=== PATIENT | male | born 1965 | race Two or more races ===

== ENCOUNTER 2023-11-10 02:54 | Observation (INO) ==
[2023-11-10 04:17] LABS: Basophils # (auto) 0.05 K/uL (0.00-0.20); Basophils % (auto) 0.8 %; Eosinophils # (auto) 0.24 K/uL (0.00-0.50); Hematocrit (blood only) 42.7 % (42.0-52.0); Hemoglobin 14.6 g/dl (14.0-18.0); Immature Granulocytes # (auto) 0.01 K/uL (0.01-0.20); Immature Granulocytes % (auto) 0.2 %; Lymphocytes # (auto) 1.47 K/uL (1.20-3.40); Lymphocytes % (auto) 24.6 %; Mean Corpuscular Hemoglobin 29.7 pg (25.0-34.0); Mean Corpuscular Hgb Conc 34.2 g/dL (32.0-36.0); Mean Platelet Volume 12.6 fL (9.4-12.4); Monocytes # (auto) 0.52 K/uL (0.11-0.59); Monocytes % (auto) 8.7 %; Neutrophils # (auto) 3.68 K/uL (1.40-6.50); Neutrophils % (auto) 61.7 %; Platelet Count 136 K/uL (130-400); RDW Coefficient of Variation 12.8 % (11.5-14.5); RDW Standard Deviation 40.3 fL (36.4-46.3); Red Blood Count 4.91 M/uL (4.70-6.10); White Blood Count 5.97 K/ul (4.8-10.8)
[2023-11-10 04:23] LABS: Albumin Globulin Ratio 1.5 (0.9-2); Albumin Level 4.1 gm/dl (3.4-5.0); BUN Creatinine Ratio 18.3 (10-20); Bilirubin,Total 0.7 mg/dl (0.2-1.0); Calcium 9.1 mg/dl (8.6-10.3); Est GFR (African American) 87.5 ml/min; Est GFR (Non-African American) 75.5 ml/min; Globulin 2.8 gm/dl (2.5-4.0); Potassium 3.7 mmol/L (3.5-5.1); Total Protein 6.9 gm/dl (6.0-8.3)
[2023-11-10 04:29] LABS: Troponin I High Sensitivity 10.6 pg/ml (0-20)
[2023-11-10 04:39] LABS: Thyroid Stimulating Hormone 2.826 uIu/ml (0.300-4.500)
--- NOTE | 2023-11-10 04:47 | Emergency Department Note ---
Impression & Plan Syncope Admit to the [facility] ED Provider Note NAME: SUREKHA MIRELES AGE: 57 SEX: Male INFORMANT: [Patient] ED PROVIDER(S): Jessica Stauffer DO CHIEF COMPLAINT: Syncope/near syncope PLAN: Disposition: Admit to the [facility] MEDICAL DECISION MAKING: This is a 57-year-old male patient with a minimal past medical history who presents to the emergency department with sudden onset syncope. The patient was walking from his bedroom to his daughter's bedroom when he became lightheaded, stumbled and passed out. His son saw him stumbling and was able to grab him and lowered him to the ground. Following this event, he was profoundly weak and fatigued. He was slow to answer questions and seemed to have a bit of an altered mental status. After some time, this cleared up and the patient stated that he felt back to normal. When he presented to the ER, the patient was pale in color and slightly diaphoretic. Laboratory studies drawn here in the ER revealed no leukocytosis with a normal H&H. Urinalysis was unremarkable. Glucose was slightly elevated at 148. TSH was normal. Renal function was normal. Electrolytes were normal. Troponin fell in the normal range at 10.6. Patient has CT scan of the brain which was unremarkable. I had a lengthy discussion with the patient and his sons about his presentation and voiced concern over the possibility of TIA versus seizure. I recommended admission to the hospital for further neurological workup. Care/management discussed with: Patient, his sons, chronic disease manager, and [facility] Triage Nursing notes: [reviewed and agree with them]. Vital Signs: reviewed and unremarkable Additional History obtained from: Patient's sons were at the bedside Differential Diagnosis: Vasovagal syncope, CVA, TIA, seizure, Diagnostics, independently interpreted by me: ECG: Normal sinus rhythm at a rate of [address] segment elevation or signs of ischemia. There is no ectopy. Cardiac Monitoring: Normal sinus rhythm at 67 Imaging studies: Portable chest x-ray as per my independent interpretation-no significant cardiomegaly or pulmonary pathology CT scan of the brain: As per stat rad. HPI: 57 year old Male arrives for evaluation of syncopal episode. Patient was walking from his bedroom to his daughter's bedroom when he became lightheaded and passed out to the ground. Following the event he was profoundly weak and fatigued. He has never had an episode like this in the past. 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 Pupils are equal, round, and reactive to light. Extraocular eye muscles are intact and sclera are anicteric. Nose - moist nasal mucosa without discharge. Mouth - moist buccal mucosa. Oropharynx is nonerythematous and there is no tonsillar exudate or edema noted. No trauma noted to the tongue Neck: Supple; no cervical lymphadenopathy Heart: Regular rate and rhythm. There is a normal S1 and S2 with no murmurs, clicks, or gallops appreciated. Lungs: Clear to auscultation bilaterally with no wheezes, rales, or rhonchi. Abdomen: Soft, completely nontender, nondistended, with good bowel sounds. There are no palpable pulsatile masses or hepatosplenomegaly. There is no guarding, rigidity, or rebound noted. Extremities: No evidence of cyanosis, clubbing, or edema. There are easily palpable peripheral pulses. Neuro:The patient is awake and alert, oriented to day, time, and place. Muscle strength is 5/5 in all 4 extremities. The patient has equal driver trainee strength and equal pedal push and pull. There are no cerebellar signs. Emergency Department course: The patient was evaluated in room C-5. A complete history and physical was performed. Blood sugar was obtained and was 138. An order was placed for continuous cardiac monitoring. The patient was in a normal sinus rhythm at a rate of 67. A twelve-lead EKG was obtained as described above. Patient went for CT scan of the brain. Patient seems somewhat slow to answer questions initially on my evaluation. This passed and his mental status returned to baseline. I kept the patient and his sons abreast of the situation. I discussed the case with the [facility] and they will evaluate for further inpatient care. Past Med/Surg History Social History Smoking Status: Never smoker Preferred Language: Romanian Feels Safe at Home: Yes Allergies Allergies Allergy/AdvReac Type Severity Reaction Status Date / Time [id number] Allergy Unknown Uncoded 10/23/05 21:14 Results & Data (ED) Vital Signs Vital Signs - 24 hr 11/10/23 03:13 11/10/23 03:19 11/10/23 04:02 Temperature 37 C Temperature Source Oral Pulse Rate - Lying Pulse Rate - Sitting Pulse Rate - Standing Pulse Rate 71 76 Pulse Rate from SpO2 Sensor Respiratory Rate 16 Blood Pressure - Lying Blood Pressure - Sitting Blood Pressure- Standing Blood Pressure 140/84 Blood Pressure Mean 102 Pulse Oximetry 98 97 Oxygen Delivery Method Room Air Room Air Sepsis Recent Fever Within 48 Hours No Sepsis New/Unexplained Change in Mental Status No Sepsis Action Taken by Nursing No Action Required 11/10/23 04:02 11/10/23 04:30 11/10/23 04:48 Temperature Temperature Source Pulse Rate - Lying 69 Pulse Rate - Sitting 76 Pulse Rate - Standing 74 Pulse Rate 69 67 Pulse Rate from SpO2 Sensor 68 66 Respiratory Rate 16 14 Blood Pressure - Lying 141/90 H Blood Pressure - Sitting 139/91 Blood Pressure- Standing 142/92 H Blood Pressure 132/83 Blood Pressure Mean 99 Pulse Oximetry 96 96 Oxygen Delivery Method Room Air Room Air Sepsis Recent Fever Within 48 Hours Sepsis New/Unexplained Change in Mental Status Sepsis Action Taken by Nursing 11/10/23 05:00 Temperature Temperature Source Pulse Rate - Lying Pulse Rate - Sitting Pulse Rate - Standing Pulse Rate 67 Pulse Rate from SpO2 Sensor Respiratory Rate 17 Blood Pressure - Lying Blood Pressure - Sitting Blood Pressure- Standing Blood Pressure 139/96 Blood Pressure Mean 110 Pulse Oximetry Oxygen Delivery Method Sepsis Recent Fever Within 48 Hours Sepsis New/Unexplained Change in Mental Status Sepsis Action Taken by Nursing Laboratory Data 11/10/23 03:15 11/10/23 03:15 Lab Results 11/10/23 11/10/23 11/10/23 Range/Units 03:15 03:19 04:45 WBC 5.97 (4.8-10.8) K/ul RBC 4.91 (4.70-6.10) M/uL Hgb 14.6 (14.0-18.0) g/dl Hct 42.7 (42.0-52.0) % MCV 87.0 (80.0-100.0) fL MCH 29.7 (25.0-34.0) pg MCHC 34.2 (32.0-36.0) g/dL RDW Std Deviation 40.3 (36.4-46.3) fL RDW Coeff of Cruz 12.8 (11.5-14.5) % Plt Count 136 (130-400) K/uL MPV 12.6 H (9.4-12.4) fL Immature Gran % (Auto) 0.2 % Neut % (Auto) 61.7 % Lymph % (Auto) 24.6 % [place] % (Auto) 8.7 % Eos % (Auto) 4.0 % Baso % (Auto) 0.8 % Neut # (Auto) 3.68 (1.40-6.50) K/uL Lymph # (Auto) 1.47 (1.20-3.40) K/uL [place] # (Auto) 0.52 (0.11-0.59) K/uL Eos # (Auto) 0.24 (0.00-0.50) K/uL Baso # (Auto) 0.05 (0.00-0.20) K/uL Immature Gran # (Auto) 0.01 (0.01-0.20) K/uL Sodium 137 (136-145) mmol/L Potassium 3.7 (3.5-5.1) mmol/L Chloride 107 (98-107) mmol/L Carbon Dioxide 22 (21-32) mmol/L Anion Gap 8 (3-11) BUN 20 (6-23) mg/dl Creatinine 1.09 (0.6-1.4) mg/dl Est Cr Clr Drug Dosing 85.0 ml/min Est GFR ( Amer) 87.5 ml/min Est GFR (Non-Af Amer) 75.5 ml/min BUN/Creatinine Ratio 18.3 (10-20) Glucose 148 H (70-99(Fasting)) mg/dl POC Glucose 138 H (70-99) mg/dl Calcium 9.1 (8.6-10.3) mg/dl Magnesium 2.0 (1.7-2.4) mg/dl Total Bilirubin 0.7 (0.2-1.0) mg/dl AST 24 (13-39) U/L ALT 30 (7-52) U/L Alkaline Phosphatase 93 (34-104) U/L Troponin I High Sens 10.6 (0-20) pg/ml Total Protein 6.9 (6.0-8.3) gm/dl Albumin 4.1 (3.4-5.0) gm/dl Globulin 2.8 (2.5-4.0) gm/dl Albumin/Globulin Ratio 1.5 (0.9-2) TSH 2.826 (0.300-4.500) uIu/ml Urine Color Yellow Urine Appearance Clear (Clear) Urine pH 6.0 (4.5-7.5) Ur Specific [place] 1.016 (1.000-1.030) Urine Protein Negative (Negative) Urine Glucose (UA) Negative (Negative) Urine Ketones Negative (Negative) Urine Blood Negative (Negative) Urine Nitrite Negative (Negative) Urine Bilirubin Negative (Negative) Urine Urobilinogen Negative (Negative) Ur Leukocyte Esterase Negative (Negative) Imaging Data Radiologist's Impression: Head CT 11/10/23 03:47 Exam(s): CT HEAD Without Contrast EXAM: CT Head Without Intravenous Contrast CLINICAL HISTORY: Reason for exam: syncope; weakness. TECHNIQUE: Axial computed tomography images of the head/brain without intravenous contrast. Automated exposure control was utilized for the study. A dose lowering technique was utilized adhering to the principles of ALARA. COMPARISON: No relevant prior studies available. FINDINGS: Brain: No acute stroke. No hemorrhage. No abnormal extra-axial fluid collection. No significant white matter disease. Ventricles: No hydrocephalus. No midline shift. Bones/joints: Unremarkable. No acute fracture. Soft tissues: Unremarkable. Sinuses: Mucosal thickening bilateral ethmoid air cells and sphenoid sinus. No acute sinusitis. IMPRESSION: No acute abnormality. Paranasal sinus disease. Electronically signed by: Dragan Larios M.D. 11/10/23 04:57 AM Discharge Plan Visit Data Chief Complaint: Confusion Stated Complaint: syncope ED Provider: Jessica Stauffer Discharge Problem: Syncope Forms Stand Alone Forms: [facility] Referrals Referrals: PCP,NO [Physician] - Discharge Problem: Syncope Qualifiers: Syncope type: unspecified Qualified Code(s): R55 - Syncope and collapse
--- NOTE | 2023-11-10 04:58 | CT Scan Report ---
Exam(s): CT HEAD Without Contrast EXAM: CT Head Without Intravenous Contrast CLINICAL HISTORY: Reason for exam: syncope; weakness. TECHNIQUE: Axial computed tomography images of the head/brain without intravenous contrast. Automated exposure control was utilized for the study. A dose lowering technique was utilized adhering to the principles of ALARA. COMPARISON: No relevant prior studies available. FINDINGS: Brain: No acute stroke. No hemorrhage. No abnormal extra-axial fluid collection. No significant white matter disease. Ventricles: No hydrocephalus. No midline shift. Bones/joints: Unremarkable. No acute fracture. Soft tissues: Unremarkable. Sinuses: Mucosal thickening bilateral ethmoid air cells and sphenoid sinus. No acute sinusitis. IMPRESSION: No acute abnormality. Paranasal sinus disease. Electronically signed by: Dragan Larios M.D. 11/10/23 04:57 AM
[2023-11-10 05:03] LABS: Appearance Urine Clear (Clear); Bilirubin Urine Negative (Negative); Blood Urine Negative (Negative); Color Urine Yellow; Glucose Urine UA Negative (Negative); Ketones Urine Negative (Negative); Leukocyte Esterase Urine Negative (Negative); Nitrite Urine Negative (Negative); Protein Urine Negative (Negative); Specific Gravity Urine 1.016 (1.000-1.030); Urobilinogen Urine Negative (Negative)
--- NOTE | 2023-11-10 06:56 | XRay Report ---
XR chest 1V portable CLINICAL HISTORY: weakness COMPARISON STUDY: No previous studies for comparison. FINDINGS: Lung volumes are normal. Lungs are clear. There is no pneumothorax or pleural effusion. Car diac size is normal. Mediastinal contours are normal. There is no evidence for pulmonary edema. IMPRESSION: No acute cardiopulmonary findings. ACT 112: Negative or not required by law. Electronically signed by: Kana Shirley M.D. 11/10/2023 6:55 AM
--- NOTE | 2023-11-10 08:28 | History & Physical Report ---
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 Patient was sleeping and his daughter came home he tried to get up when he suddenly felt like passing out. He thinks he might have passed out for a fraction of second and his son was there who who held him and the patient did not fall. As per the ER initially for 15 to 20 minutes patient was confused and slow to answer and after that came back to usual self. But patient did not think he was confused. Says he was extremely weak and did not want to get up. Denies any chest pain or shortness of breath. No palpitations. No headache. Vision is okay. 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 Patient was sleeping and his daughter came home he tried to get up when he suddenly felt like passing out. He thinks he might have passed out for a fraction of second and his son was there who who held him and the patient did not fall. As per the ER initially for 15 to 20 minutes patient was confused and slow to answer and after that came back to usual self. But patient did not think he was confused. Says he was extremely weak and did not want to get up. Denies any chest pain or shortness of breath. No palpitations. No headache. Vision is okay. No earache or runny nose. No sore throat. No cough. No nausea or abdominal pain. Normal bowel and bladder movements. Current resting comfortably and hemodynamically stable. Past medical history. As mentioned above Past surgical history. Colonoscopy. Cystoscopy. IR biopsy. Social history. . No smoking. No alcohol. No drug use. Family history. Mother has asthma. Diabetes. Father had glaucoma. Maternal grandfather had diabetes. Paternal grandfather had diabetes. Allergies Allergy/AdvReac Type Severity Reaction Status Date / Time [id number] Allergy Unknown Uncoded 10/23/05 21:14 Home Medications Medication Instructions Recorded Confirmed Type atorvastatin 10 mg tablet 10 mg PO DAILY 11/10/23 11/10/23 History cholecalciferol (vitamin D3) 50 50 mcg PO DAILY 11/10/23 11/10/23 History mcg (2,000 unit) capsule (Vitamin D3) Past Med/Surg History Social History Smoking Status: Never smoker Preferred Language: Vincentian Feels Safe at Home: Yes Review of Systems Review of Systems: All systems reviewed & are unremarkable except as noted in HPI & below Physical Exam Physical Exam: General- Not in distress Head- atraumatic Eyes- PERRL. ENT- oropharynx clear Neck- supple, no JVD. Lungs- clear to auscultation no wheezing or crackles. Heart- regular rhythm; no murmur, no gallop. Abdomen- normal bowel sounds, soft, nontender, no distension. Extremities- no pretibial edema, no erythema seen. Neuro- alert, oriented x 3; PERRL, EOMI; no facial palsy; no dysarthria; motor 5/5 bilaterally; coordination of movements normal. No pronator drift. sensations intact Skin- warm & dry Results & Data Results & Data Vital Signs (Past 12 Hours) Vital Signs Temp Pulse Resp BP Pulse Ox O2 Del Method 11/10/23 08:07 62 11/10/23 05:00 67 17 139/96 11/10/23 04:30 67 14 96 Room Air 11/10/23 04:02 69 16 132/83 96 Room Air 11/10/23 04:02 97 Room Air 11/10/23 03:19 76 11/10/23 03:13 37 C 71 16 140/84 98 Room Air Diagnostic Findings Laboratory Results WBC 5.97 K/ul (4.8-10.8) 11/10/23 03:15 RBC 4.91 M/uL (4.70-6.10) 11/10/23 03:15 Hgb 14.6 g/dl (14.0-18.0) 11/10/23 03:15 Hct 42.7 % (42.0-52.0) 11/10/23 03:15 MCV 87.0 fL (80.0-100.0) 11/10/23 03:15 MCH 29.7 pg (25.0-34.0) 11/10/23 03:15 MCHC 34.2 g/dL (32.0-36.0) 11/10/23 03:15 RDW Std Deviation 40.3 fL (36.4-46.3) 11/10/23 03:15 RDW Coeff of Cruz 12.8 % (11.5-14.5) 11/10/23 03:15 Plt Count 136 K/uL (130-400) 11/10/23 03:15 MPV 12.6 fL (9.4-12.4) H 11/10/23 03:15 Immature Gran % (Auto) 0.2 % 11/10/23 03:15 Neut % (Auto) 61.7 % 11/10/23 03:15 Lymph % (Auto) 24.6 % 11/10/23 03:15 [place] % (Auto) 8.7 % 11/10/23 03:15 Eos % (Auto) 4.0 % 11/10/23 03:15 Baso % (Auto) 0.8 % 11/10/23 03:15 Neut # (Auto) 3.68 K/uL (1.40-6.50) 11/10/23 03:15 Lymph # (Auto) 1.47 K/uL (1.20-3.40) 11/10/23 03:15 [place] # (Auto) 0.52 K/uL (0.11-0.59) 11/10/23 03:15 Eos # (Auto) 0.24 K/uL (0.00-0.50) 11/10/23 03:15 Baso # (Auto) 0.05 K/uL (0.00-0.20) 11/10/23 03:15 Immature Gran # (Auto) 0.01 K/uL (0.01-0.20) 11/10/23 03:15 Sodium 137 mmol/L (136-145) 11/10/23 03:15 Potassium 3.7 mmol/L (3.5-5.1) 11/10/23 03:15 Chloride 107 mmol/L (98-107) 11/10/23 03:15 Carbon Dioxide 22 mmol/L (21-32) 11/10/23 03:15 Anion Gap 8 (3-11) 11/10/23 03:15 BUN 20 mg/dl (6-23) 11/10/23 03:15 Creatinine 1.09 mg/dl (0.6-1.4) 11/10/23 03:15 Est Cr Clr Drug Dosing 85.0 ml/min 11/10/23 03:15 Est GFR ( Amer) 87.5 ml/min 11/10/23 03:15 Est GFR (Non-Af Amer) 75.5 ml/min 11/10/23 03:15 BUN/Creatinine Ratio 18.3 (10-20) 11/10/23 03:15 Glucose 148 mg/dl (70-99(Fasting)) H 11/10/23 03:15 POC Glucose 138 mg/dl (70-99) H 11/10/23 03:19 Calcium 9.1 mg/dl (8.6-10.3) 11/10/23 03:15 Magnesium 2.0 mg/dl (1.7-2.4) 11/10/23 03:15 Total Bilirubin 0.7 mg/dl (0.2-1.0) 11/10/23 03:15 AST 24 U/L (13-39) 11/10/23 03:15 ALT 30 U/L (7-52) 11/10/23 03:15 Alkaline Phosphatase 93 U/L (34-104) 11/10/23 03:15 Troponin I High Sens 10.6 pg/ml (0-20) 11/10/23 03:15 Total Protein 6.9 gm/dl (6.0-8.3) 11/10/23 03:15 Albumin 4.1 gm/dl (3.4-5.0) 11/10/23 03:15 Globulin 2.8 gm/dl (2.5-4.0) 11/10/23 03:15 Albumin/Globulin Ratio 1.5 (0.9-2) 11/10/23 03:15 TSH 2.826 uIu/ml (0.300-4.500) 11/10/23 03:15 Urine Color Yellow 11/10/23 04:45 Urine Appearance Clear (Clear) 11/10/23 04:45 Urine pH 6.0 (4.5-7.5) 11/10/23 04:45 Ur Specific [place] 1.016 (1.000-1.030) 11/10/23 04:45 Urine Protein Negative (Negative) 11/10/23 04:45 Urine Glucose (UA) Negative (Negative) 11/10/23 04:45 Urine Ketones Negative (Negative) 11/10/23 04:45 Urine Blood Negative (Negative) 11/10/23 04:45 Urine Nitrite Negative (Negative) 11/10/23 04:45 Urine Bilirubin Negative (Negative) 11/10/23 04:45 Urine Urobilinogen Negative (Negative) 11/10/23 04:45 Ur Leukocyte Esterase Negative (Negative) 11/10/23 04:45 Impressions Chest X-Ray 11/10/23 03:46 XR chest 1V portable CLINICAL HISTORY: weakness COMPARISON STUDY: No previous studies for comparison. FINDINGS: Lung volumes are normal. Lungs are clear. There is no pneumothorax or pleural effusion. Cardiac size is normal. Mediastinal contours are normal. There is no evidence for pulmonary edema. IMPRESSION: No acute cardiopulmonary findings. ACT 112: Negative or not required by law. Electronically signed by: Kana Shirley M.D. 11/10/2023 6:[address] 11/10/23 03:47 Exam(s): CT HEAD Without Contrast EXAM: CT Head Without Intravenous Contrast CLINICAL HISTORY: Reason for exam: syncope; weakness. TECHNIQUE: Axial computed tomography images of the head/brain without intravenous contrast. Automated exposure control was utilized for the study. A dose lowering technique was utilized adhering to the principles of ALARA. COMPARISON: No relevant prior studies available. FINDINGS: Brain: No acute stroke. No hemorrhage. No abnormal extra-axial fluid collection. No significant white matter disease. Ventricles: No hydrocephalus. No midline shift. Bones/joints: Unremarkable. No acute fracture. Soft tissues: Unremarkable. Sinuses: Mucosal thickening bilateral ethmoid air cells and sphenoid sinus. No acute sinusitis. IMPRESSION: No acute abnormality. Paranasal sinus disease. Electronically signed by: Dragan Larios M.D. 11/10/23 04:57 AM ECG Additional Comments: ECG. Normal sinus rhythm rate of 74. Nonspecific T abnormalities. Code Status & VTE Plan VTE Prophylaxis Plan VTE Prophylaxis will be ordered: Yes (1) Syncope Syncope type: unspecified Qualified Code(s): R55 - Syncope and collapse
[2023-11-10] MEDS ORDERED: PHARMACIST DISCHARGE MED REC CONSULT PRN (09:09)
[2023-11-10] MEDS ORDERED: NITROGLYCERIN SL 0.4 MG/TAB TAB SL PRN (09:09)
[2023-11-10] MEDS ORDERED: SODIUM CHLORIDE 0.9% 1,000 ML IV SCH (09:09)
[2023-11-10] MEDS ORDERED: ACETAMINOPHEN 325 MG TAB PO PRN (09:09)
--- NOTE | 2023-11-10 09:46 | Cardiology Progress Note ---
Date of Service November 10, 2023 Assessment & Plan Admission and Anticipated Discharge Date Admission Date: November 10, 2023 Supervising Physician Co-Signing Physician Notes 57 yo man presenting with syncope * EKG - sinus - normal intervals. No active ischemic changes noted; does not appear C/W HCM * Head CT - negative for CVA or mass * ECHOcardiogram - completed - results pending * Troponin 10, repeat Troponin * Check Lipids * No known Carotid Disease * Check TSH * Continue on telemetry * KDUR 40 meq po x 1 * K+ goal 4.5-5 * Mag goal >2 * Check Orthostatics - may be negative as patient has been fluid resuscitated. 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 * Late night * Gets up to greet daughter * Walking from bedroom to cuevas * Lightheaded * No vertigo * No palpitations * No chest pain/pressure * Fell to ground * Caught by son * No trauma reported * No seizure activity * No incontinence * Day preceding - normal * Normal fluid and food intake day of/prior to presentation * EKG - normal intervals; no ischemic changes * Head CT - no mass, bleeding or evidence of CVA * No DM - FSG at scene unclear Events overnight: * No arrhythmias detected Subjective: * Patient back to baseline Review of Systems 2 Review of Systems: All systems reviewed & are unremarkable except as noted in HPI & below Physical Exam Physical Exam: No elevation in JVP No carotid bruits No subclavian bruits CTA B S1S2 No , No outflow murmur No c/c/e Warm and perfusing Motor - intact Sensation - grossly intact No facial droop Results & Data Vital Signs (Past 12 Hours) Vital Signs Temp Pulse Resp BP Pulse Ox Pulse Ox O2 Del Method 11/10/23 09:27 98 11/10/23 08:30 61 14 97 Room Air 11/10/23 08:07 62 11/10/23 06:00 62 12 116/73 98 Room Air 11/10/23 05:00 67 17 139/96 11/10/23 04:30 67 14 96 Room Air 11/10/23 04:02 69 16 132/83 96 Room Air 11/10/23 04:02 97 Room Air 11/10/23 03:19 76 11/10/23 03:13 37 C 71 16 140/84 98 Room Air O2 Del Method 11/10/23 09:27 Room Air 11/10/23 08:30 11/10/23 08:07 11/10/23 06:00 11/10/23 05:00 11/10/23 04:30 11/10/23 04:02 11/10/23 04:02 11/10/23 03:19 11/10/23 03:13 Laboratory Results Cardiac Enzymes 11/10/23 Range/Units 03:15 AST 24 (13-39) U/L Troponin I High Sens 10.6 (0-20) pg/ml CBC 11/10/23 Range/Units 03:15 WBC 5.97 (4.8-10.8) K/ul RBC 4.91 (4.70-6.10) M/uL Hgb 14.6 (14.0-18.0) g/dl Hct 42.7 (42.0-52.0) % Plt Count 136 (130-400) K/uL Neut # (Auto) 3.68 (1.40-6.50) K/uL Lymph # (Auto) 1.47 (1.20-3.40) K/uL [place] # (Auto) 0.52 (0.11-0.59) K/uL Eos # (Auto) 0.24 (0.00-0.50) K/uL Baso # (Auto) 0.05 (0.00-0.20) K/uL Comprehensive Metabolic Panel 11/10/23 Range/Units 03:15 Sodium 137 (136-145) mmol/L Potassium 3.7 (3.5-5.1) mmol/L Chloride 107 (98-107) mmol/L Carbon Dioxide 22 (21-32) mmol/L BUN 20 (6-23) mg/dl Creatinine 1.09 (0.6-1.4) mg/dl Glucose 148 H (70-99(Fasting)) mg/dl Calcium 9.1 (8.6-10.3) mg/dl AST 24 (13-39) U/L ALT 30 (7-52) U/L Alkaline Phosphatase 93 (34-104) U/L Total Protein 6.9 (6.0-8.3) gm/dl Albumin 4.1 (3.4-5.0) gm/dl Intake and Output 11/09/23 11/10/23 11/10/23 22:59 06:59 14:59 Other: Weight 89 kg Weight Measurement Method Built in Bedscale Medications Administered Current Inpatient Medications Acetaminophen (Acetaminophen 325 Mg Tab) 650 mg PO Q4H PRN PRN Reason: Pain or Fever Stop: 12/10/23 09:08 Sodium Chloride (Nss) 1,000 mls @ 100 mls/hr IV .Q10H SRIKANTH Stop: 11/11/23 05:08 Miscellaneous Information (Pharmacist Discharge Med Rec Consult) 1 each N/A UD PRN PRN Reason: Consult Stop: 12/10/23 09:08 Nitroglycerin (Nitroglycerin Sl 0.4 Mg/Tab Tab) 0.4 mg SL Q5M PRN PRN Reason: Chest Pain Stop: 12/10/23 09:08
--- OUTSIDE RECORDS SUMMARY | 2023-11-10 11:02 | External Medical Summary | Summary of Care ---
Author Name Unknown Organization [facility] Address [address] [place] [facility] [place] [place] [address] Phone [phone] Care Team Providers Care Notch Machine Operator Name Role Phone Ford Marsh MD Primary Care Provider + Reason for Visit * Reason Comments Medication Refill Encounter Details Date Type Department Care Team (Late st Contact Info) Description 09/25/2023 Refill General Internal Medicine [facility] [address] [facility] [place] [address] Ford Marsh MD [address] [place] [address] Dyslipidemia, goal LDL below 160 Allergies No known active allergiesdocumented as of this encounter (statuses as of 09/25/2023) Medications Medication Sig Dispensed Refills Start Date End Date Status Cholecalciferol (VITAMIN D3) 2000 units Capsule Take 1 Capsule by mouth in the morning. 30 Cap 5 09/20/2019 Active Vitamin E 100 UNIT Oral Tablet Take 4 Tablets by mouth in the morning. 0 Active Atorvastatin Calcium 10 MG Oral Tablet (Lipitor)Indicati ons:Dyslipidemia, goal LDL below 160 TAKE ONE TABLET BY MOUTH EVERY DAY 90 Tablet 1 09/25/2023 09/24/2024 Active Atorvastatin Calcium 10 MG Oral Tablet (Lipitor)Indicati ons:Dyslipidemia, goal LDL below 160 TAKE ONE TABLET BY MOUTH EVERY DAY 90 Tablet 1 02/14/2023 09/25/2023 Discontinued (Refill) documented as of this encounter (statuses as of 09/25/2023) Active Problems Problem Noted Date Diagnosed Date Mixed hyperlipidemia 04/15/2022 Fatty liver 04/15/2022 Erectile dysfunction 07/10/2021 Dysmetabolic syndrome X 07/10/2021 Prediabetes 01/13/2018 Overview: Per Prediabetes protocol #1 Vitamin D deficiency 05/15/2017 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 Calculus of ureter 06/18/2005 Other acne 06/18/2005 documented as of this encounter (statuses as of 09/25/2023) Resolved Problems Problem Noted Date Diagnosed Date Resolved Date Dyslipidemia, goal LDL below 160 2008 04/15/2022 Malaise and fatigue 10/14/2008 03/10/20 13 Disease of pituitary gland 10/14/2008 0 03/10/2013 documented as of this encounter (statuses as of 09/25/2023) Immunizations Name Administration Dates Next Due COVID-19 mRNA, LNP-s, No Pre serve, 2-Dose Series ([employer]) 11/16/2021,12/21/2020,11/30/2020 Covid-19, Mrna, Lnp-s, Pf, B ivalent, 30 Mcg, IM, 12 yrs and above (Pfizer) 10/10/2022 HEP A - Hepatitis A (Adult > 18 yrs) 04/04/2009 Meningococcal Conjugate Vacc ine (Menactra/Menveo) 04/04/2009 SEASONAL INFLUENZA, PF, 6 M & Above, IM , (FLULAVAL or FLUZONE) 09/24/2023,09/10/2022 Seasonal Influenza, Quadriva lent, No Preserve, IM 08/29/2021,09/06/2020,09/20/2019,10/08 Seasonal Influenza, Split, I IV3, With Preserve, Inj 09/03/2017,08/29/2016,09/19/2015 TD, Preservative Free 04/20/2021 TDAP (age 11 and older)(Adacel) 04/04/2009 Zoster Vaccine Recombinant (Shingrix) 04/20/2021 documented as of this encounter Social History Tobacco Use Types Packs/Day Years Used Date Smoking Tobacco: Never Smokeless Tobacco: Never Alcohol Use Standard Drinks/Week Comments No 0 (1 standard drink = 0.6 oz pur e alcohol) PHQ-2 Answer Date Recorded PHQ Adult Total Score 0 11/12/2022 Hunger Vital Sign Answer Date Recorded Within the past 12 months, y ou worried that your food would run out before you got the money to buy more. Never true 11/12/20 22 Within the past 12 months, t he food you bought just didn't last and you didn't have money to get more. Never true 11/12/2022 Sex and Gender Information Value Date Recorded Sex Assigned at Male 05/28/2019 11:47 AM EDT Gender Identity Male 05/28/2019 11:47 AM EDT Sexual Orientation Straight 05/28/2019 11 :47 AM EDT Job Start Date Occupation Industry Not on file Not on file Not on file documented as of this encounter Miscellaneous Notes * Telephone Encounter - Lolly Hunter RPh - 09/25/2023 10:21 AM EDTSigned Prescriptions: Disp Refills Atorvastatin Calcium 10 MG Oral Tablet (Li*90 Tab*1 Sig: TAKE ONE TABLET BY MOUTH EVERY DAYAuthorizing Provider: FORD MARSH User: LOLLY ESPINAL V-- * Telephone Encounter - Lolly Hunter RPh - 09/25/2023 10:18 AM EDT Did you pend patient's preferred pharmacy and medication before forwarding?no Pharmacy: [facility] Pending Prescriptions: Disp Refills Atorvastatin Calcium 10 MG Oral Tablet (L*90 Tab*1 Sig: TAKE ONE TABLET BY MOUTH EVERY DAY Last Visit: 07/28/2023 (in office), 04/15/2022 (telemedicine) Next Visit: 03/29/2024 If no future appointments scheduled, and last appointment is greater than a year ago, please schedule patient for a follow-up appointment Last date the medication was ordered: 02/14/23 ALT slightly elevated 08/16/23. Repeat lab ordered. Is this request for a controlled substance?No Urine Drug Screen:No results found for this or any previous visit. Patient Phone Numbers Labs: Lab Results Component Value Date/Time CREAT 0.9 08/16/2023 11:17 AM CREAT 1.1 06/01/2020 09:25 AM POTASSIUM 4.2 08/16/2023 11:17 AM POTASSIUM 4.7 06/01/2020 09:25 AM TSH 2.38 11/12/2022 09:22 AM TSH 1.36 12/09/2017 04:24 PM LDLCALC 90 08/16/2023 11:17 AM LDLCALC 89 06/01/2020 09:25 AM LDLDIRECT NOT APPLICABLE 06/01/2020 09:25 AM LDLDIRECT 125 06/11/2005 09:05 AM ALT 79 (H) 08/16/2023 11:17 AM ALT 31 06/01/2020 09:25 AM HGBA1C 6.1 (H) 08/16/2023 11:17 AM HGBA1C 5.8 (H) 06/01/2020 09:25 AM Lolly Espinal RPh, CACP, CDE Clinical Pharmacist [facility] 09/25/2023, 10:18 AM documented in this encounter Plan of Treatment Upcoming Encounters Date Type Department Care Team (Late st Contact Info) Description 10/14/2023 4:15 PM EST Office Visit Urology, [facility] [address] [facility] [place] [address] Eduardo Geiger MD [address] [facility] [address] [place] [address] 02/16/2024 2:30 PM EDT Office Visit Otolaryngology [facility] [address] [place] [address] Grant Beasley DO [address] [place] [address] 03/29/2024 12:40 PM EDT Office Visit General Internal Medicine [facility] [address] [facility] [place] [address] Ford Marsh MD [address] [facility] [place] [address] Scheduled Procedures Name Priority Associated Diagnoses Date/Ti me COLONOSCOPY FLEXIBLE PROXIMA L DIAGNOSTIC Recall History of colonic polyps Health Maintenance Due Date Last Done Comments Hepatitis B (1 of 3 - 3-dose series) 1965 Zoster Vaccines (2 of 2) 06/15/2021 04/20/2021 COVID-19 Vaccine (2022- season) 2023 10/10/2022, 11/16/2021, 12/21/2020, Additional history exists Depression Screening 11/12/2023 11/12/2022 COLONOSCOPY-ANNUAL AGES 18-100 05/21/2024 05/21/2023, 05/21/2023, 01/23/2018, Additional history exists HbA1c 08/16/2024 08/16/2023, 03/31, 07/27/2021, Additional history exists Lipid Panel 08/16/2028 08/16/2023, 03/31, 04/21/2021, Additional history exists DTaP,Tdap,and Td Vaccines (4 - Td or Tdap) 04/20/2031 04/20/2021, 03/20/2011, 04/04/2009 MENINGOCOCCAL (MENACTRA/MENVEO) Aged Out 04/04/2009 No longer eligible based on patient's age to complete this topic COLONOSCOPY-EVERY 5 YRS AGES 18-100 Discontinued 05/21/2023, 05/21/2023, 01/23/2018, Additional history exists Influenza Vaccine (FLU shot) Completed 09/24/2023, 09/10/2022, 08/29/2021, Additional history exists GARDASIL-HPV IMMUNIZATION SERIES Aged Out No longer eligible based on patient's age to complete this topic Pneumococcal Vaccine: Pediatrics (0 to 5 Years) and At-Risk Patients (6 to 64 Years) Aged Out No longer eligible based on patient's age to complete this topic documented as of this encounter Medical Devices Not on filedocumented as of this encounter Visit Diagnoses Diagnosis Dyslipidemia, goal LDL below 160 Other and unspecified hyperlipidemia documented in this encounter Care Teams Notch Machine Operator Relationship Specialty Start Date End Date Ford Marsh MD [address] [facility] [place] [address] PCP - General Internal Medicine 04/19/22 documented as of this encounter
--- OUTSIDE RECORDS SUMMARY | 2023-11-10 11:02 | External Medical Summary | Summary of Care ---
Author Name Unknown Organization [facility] Address [address] [place] [address] Phone [phone] Care Team Providers Care Line Producer Name Role Phone Ford Wise MD Primary Care Provider + Reason for Visit * Reason Onset Date Comments Waiter/Waitress Cafeteria Documentation 09/04/2023 20 23 Healthy Activity Advance Directive Encounter Details Date Type Department Care Team Description 09/04/2023 Telephone Care Management, [place] [address] [place], [place] [id number] Taylor Ta, [facility] Waiter/Waitress Cafeteria Documentation (2022 Health... Allergies No known active allergiesdocumented as of this encounter (statuses as of 09/04/2023) Medications Medication Sig Dispensed Refills Start Date End Date Status Cholecalciferol (VITAMIN D3) 2000 units Capsule Take 1 Capsule by mouth in the morning. 30 Cap 5 09/20/2019 Active Vitamin E 100 UNIT Oral Tablet Take 4 Tablets by mouth in the morning. 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 Calculus of ureter 06/18/2005 Other acne 06/18/2005 documented as of this encounter (statuses as of 09/04/2023) Resolved Problems Problem Noted Date Resolved Date Dyslipidemia, goal LDL below 160 2008 04/15/2022 Malaise and fatigue 10/14/2008 03/10/2013 Disease of pituitary gland 10/14/200803/10 documented as of this encounter (statuses as of 09/04/2023) Immunizations Name Administration Dates Next Due COVID-19 mRNA, LNP-s, No Pre serve, 2-Dose Series ([employer]) 11/16/2021,12/21/2020,11/30/2020 Covid-19, Mrna, Lnp-s, Pf, B ivalent, 30 Mcg, IM, 12 yrs and above ([employer]) 10/10/2022 HEP A - Hepatitis A (Adult > 18 yrs) 04/04/2009 Meningococcal Conjugate Vacc ine (Menactra/Menveo) 04/04/2009 SEASONAL INFLUENZA, PF, 6 M & Above, IM , (FLULAVAL or FLUZONE) 09/10/2022 Seasonal Influenza, Quadriva lent, No Preserve, IM [...] drink = 0.6 oz pur e alcohol) Food Insecurity Answer Date Recorded Within the past 12 months, y ou worried that your food would run out before you got money to buy more. Never true 11/12/2022 Within the past 12 months, t he food you bought just didn't last and you didn't have money to get more. Never true 11/12/2022 Sex Assigned at Date Recorded Male 05/28/2019 11:47 AM EDT Job Start Date Occupation Industry Not on file Not on file Not on file documented as of this encounter Miscellaneous Notes * ACP (Advance Care Planning) - Taylor Ta LCSW - 09/04/2023 3:46 PM EDT Images from the original note were not included. Advance Care Planning MyCare[employer]ices Team received request from patient via e-mail. Advanced Directive Healthy Activity Request Form was completed by patient. Patients answers to ACP questionnaires have been placed medical record in ACP activity. Patient preferred method of contacted selected contact method: no contact, will attend a group presentation on Advanced Care Planning. Patient-centered Communication 09/04/2023 Decisions Additional Comments Discerning What Matters Most to the Patient: Synopsis SmartLink Most Recent Value Past ~10 years 09/04/2023 15:47 Discerning What Matters Most to the Patient The patient's HOPES are: Other (define below) 09/04/2023 Other (define below) Other, patient defines as: "talking with family" 09/04/2023 "talking with family" The patient defines LIVING WELL as: "A living will will ensure me to get the care I want." 09/04/2023 "A living will will ensure me to get the care I want." The patient's PRIOR EXPERIENCES: "Focus on health as much as possible." 09/04/2023 "Focus on health as much as possible." The patient's cultural or spiritual BELIEFS that may affect health care decisions: "Remembrance of creator brings comfort." 09/04/2023 "Remembrance of creator brings comfort." Source: Content from Respecting Choices Program Aligning Care With What Matters Most: No data to display Rationale for Decisions Source: Content from Respecting Choices Program Taylor Ta LCSW documented in this encounter Plan of Treatment Upcoming Encounters Date Type Specialty Care Team Description 10/14/2023 Office Visit Urology Eduardo Geiger MD [address] [place] [address] [place] [address] 02/16/2024 Office Visit Otolaryngology Grant eBasley DO [address] [place] [address] 03/29/2024 Office Visit Internal Medicine Ford Wise MD [address] [facility], [place] [phone] Scheduled Procedures Name Priority Associated Diagnoses Date/Ti me COLONOSCOPY FLEXIBLE PROXIMA L DIAGNOSTIC Recall History of colonic polyps Health Maintenance Due Date Last Done Comments Hepatitis B (1 of 3 - 3-dose series) 1965 Zoster Vaccines (2 of 2) 06/15/2021 04/20/2021 COVID-19 Vaccine (2022- season) 2023 10/10/2022, 11/16/2021, 12/21/2020, Additional history exists Influenza Vaccine (FLU shot) (#1) 2023 09/10/2022, 08/29/2021, 09/06/2020, Additional history exists Depression Screening 11/12/2023 11/12/2022 [...] Discontinued 05/21/2023, 05/21/2023, 01/23/2018, Additional history exists GARDASIL-HPV IMMUNIZATION SERIES Aged Out No longer eligible based on patient's age to complete this topic Pneumococcal Vaccine: Pediatrics (0 to 5 Years) and At-Risk Patients (6 to 64 Years) Aged Out No longer eligible based on patient's age to complete this topic documented as of this encounter Medical Devices Not on filedocumented as of this encounter Care Teams Line Producer Relationship Specialty Start Date End Date Ford Wise MD [address] [place] [id number] PCP - General Internal Medicine 04/19/22 documented as of this encounter
--- OUTSIDE RECORDS SUMMARY | 2023-11-10 11:02 | External Medical Summary | Summary of Care ---
Author Name Unknown Organization [facility] Address [address] [place] [address] Phone [phone] Care Team Providers Care Geophysical Data Technician Name Role Phone Ford Wise MD Primary Care Provider + Reason for Visit * Reason Onset Date Comments Films 08/29/2023 Encounter Details Date Type Department Care Team Description 08/29/2023 Telephone Radiology Film [facility] [address] [place] [address] Tod Bates PA-C [address] [place] [address] Films Allergies No known active allergiesdocumented as of this encounter (statuses as of 08/29/2023) Medications Medication Sig Dispensed Refills Start Date [...] as of this encounter (statuses as of 08/29/2023) Active Problems Problem Noted Date Mixed hyperlipidemia 04/15/2022 Fatty liver 04/15/2022 Erectile dysfunction 07/10/2021 Dysmetabolic syndrome X 07/10/2021 Prediabetes 01/13/2018 Overview: Per Prediabetes protocol #1 Vitamin D deficiency 05/15/2017 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 Calculus of ureter 06/18/2005 Other acne 06/18/2005 documented as of this encounter (statuses as of 08/29/2023) Resolved Problems Problem Noted Date Resolved Date Dyslipidemia, goal LDL below 160 2008 04/15/2022 Malaise and fatigue 10/14/2008 03/10/2013 Disease of pituitary gland 10/14/200803/10 documented as of this encounter (statuses as of 08/29/2023) Immunizations Name Administration Dates Next Due COVID-19 mRNA, LNP-s, No Pre serve, 2-Dose Series (Pfizer) 11/16/2021,12/21/2020,11/30/2020 Covid-19, Mrna, Lnp-s, Pf, B ivalent, 30 Mcg, IM, 12 yrs and above (Pfizer) 10/10/2022 HEP A - Hepatitis A (Adult > 18 yrs) 04/04/2009 Meningococcal Conjugate Vacc ine (Menactra/Menveo) 04/04/2009 Seasonal Influenza, PF, 6 mo ns & Above, IM , (Flulaval) 09/10/2022 Seasonal Influenza, Quadriva lent, No Preserve, [...] encounter Miscellaneous Notes * Telephone Encounter - ANUJ Alfaro - 08/29/2023 8:32 AM EDT Patient requested for recent 07-24-23 to present head/neck imaging to be sent to [facility] ENT -Dr Kingsley Patterson. Wright Authorization to Release on file. Images pushed to [facility] Life Image account, Job ID: [id number] Report(s) faxed to [phone]. Successful fax confirmation received. documented in this encounter Plan of Treatment Upcoming Encounters Date Type Specialty Care Team Description 10/14/2023 Office Visit Urology Eduardo Geiger MD [address] [place] [address] [place] [address] 02/16/2024 Office Visit Otolaryngology Grant Beasley DO [address] [place] [address] 03/29/2024 Office Visit Internal Medicine Ford Wise MD [address] [place] [address] Scheduled Procedures Name Priority Associated Diagnoses Date/Ti me COLONOSCOPY FLEXIBLE PROXIMA L DIAGNOSTIC Recall History of colonic polyps Health Maintenance Due Date Last Done Comments Hepatitis B (1 of 3 - 3-dose series) 1965 Zoster Vaccines (2 of 2) 06/15/2021 04/20/2021 Influenza Vaccine (FLU shot) (#1) 2023 09/10/2022, [...] on patient's age to complete this topic COVID-19 Vaccine Completed 10/10/2022, , 12/21/2020, Additional history exists COLONOSCOPY-EVERY 5 YRS AGES 18-100 Discontinued 05/21/2023, [...] filedocumented as of this encounter Care Teams Geophysical Data Technician Relationship Specialty Start Date End Date Ford Wise MD [address] [place] [id number] PCP - General Internal Medicine 04/19/22 documented as of this encounter
--- OUTSIDE RECORDS SUMMARY | 2023-11-10 11:02 | External Medical Summary | Summary of Care ---
Author Name Unknown Organization [facility] Address [address] [place] [address] Phone [phone] Care Team Providers Care Heat Transfer Technician Name Role Phone Ford Marsh MD Primary Care Provider + Reason for Visit * Reason Comments Follow Up Encounter Details Date Type Department Care Team (Late st Contact Info) Description 10/14/2023 4:15 PM EST Office Visit Urology, [facility] [address] [place] [address] Eduardo Geiger MD [address] [facility] [address] [place] [address] Erectile dysfunction due to diseases classified elsewhere*; BPH without obstruction/lower urinary tract symptoms Allergies No known active allergiesdocumented as of this encounter (statuses as of 10/14/2023) Medications Medication Sig Dispensed Refills Start Date [...] DAY 90 Tablet 1 09/25/2023 09/24/2024 Active documented as of this encounter (statuses as of 10/14/2023) Active Problems Problem Noted Date Diagnosed Date Mixed hyperlipidemia 04/15/2022 Fatty liver 04/15/2022 Erectile dysfunction 07/10/2021 Dysmetabolic syndrome X 07/10/2021 Prediabetes 01/13/2018 Overview: Per Prediabetes protocol #1 Vitamin D deficiency 05/15/2017 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 Calculus of ureter 06/18/2005 Other acne 06/18/2005 documented as of this encounter (statuses as of 10/14/2023) Resolved Problems Problem Noted Date Diagnosed Date Resolved Date Dyslipidemia, goal LDL below 160 2008 04/15/2022 Malaise and fatigue 10/14/2008 03/10/20 13 Disease of pituitary gland 10/14/2008 0 03/10/2013 documented as of this encounter (statuses as of 10/14/2023) Immunizations Name Administration Dates Next Due COVID-19 [...] on file documented as of this encounter Progress Notes * Eduardo Geiger MD - 10/14/2023 4:15 PM EST Images from the original note were not included. 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 Patient's past notesare reviewed. He has not tried the medication recently. He feels the combination of sildenafil and tadalafil was not helpful. Patient remains quite frustrated by his difficulties. Erectile dysfunction: Presented to Urology May 2022. Worsening x 4 years. He is , causing stress. Tried testosterone supplementation with improvement. Patient notes increased libido. Previous tried tadalafil with increased sildenafil. PSA Results: Lab Results Component Value Date/Time PSA - [facility] 0.41 05/06/2023 12:41 PM PSA - [facility] 0.37 04/17/2022 10:00 AM PSA - [facility] 0.41 07/27/2021 04:18 PM PSA - [facility] 0.50 12/31/2018 09:08 AM PSA - [facility] 0.42 12/20/2008 08:32 AM PSA - [facility] 0.41 06/11/2005 09:05 AM PSA SCREENING 0.42 10/18/2008 08:03 AM PSA SCREENING RESULTS RECHECKED 10/18/2008 08:03 AM PSA SCREENING 0.44 06/24/2006 11:48 AM Testosterone May 2023: Component Ref Range & Units 5 mo ago Albumin 3.8 - 5.0 g/dL 4.9 Sex Hormone Binding Globulin 12 - 91 nmol/L 45 Testosterone, Total 193.0 - 740.0 ng/dL 478.1 Free Testosterone, Calculation 35.0 - 130.0 pg/mL 77.0 Bioavailable Testosterone Calculation 79.0 - 335.0 ng/dL 204.6 Current Outpatient Medications Medication Sig Dispense Refill Cholecalciferol (VITAMIN D3) 2000 units Capsule Take 1 Capsule by mouth in the morning. 30 Cap 5 Vitamin E 100 UNIT Oral Tablet Take 4 Tablets by mouth in the morning. Atorvastatin Calcium 10 MG Oral Tablet (Lipitor) TAKE ONE TABLET BY MOUTH EVERY DAY 90 Tablet 1 No current facility-administered medications for this visit. Review of patient's allergies indicates: No Known Allergies Social History: Social History Tobacco Use Smoking status: Never Smokeless tobacco: Never Substance Use Topics Alcohol use: No Vaping/E-Cigarette Use Vaping/E-Cigarette Use Never User Vaping/E-Cigarette Substances Vaping/E-Cigarette Devices Family History Problem Relation Age of Onset Diabetes Mother Asthma Mother Glaucoma Father Other (Other) Other no first degree relatives with cancer Diabetes Grandfather (Maternal) Diabetes Grandfather (Paternal) Past Surgical History: Procedure Laterality Date COLONOSCOPY, DIAGNOSTIC (RECTUM) 01/23/2018 adenomatous polyps, diverticulosis, repeat 5 yrs/COLONOSCOPY FLEXIBLE PROXIMAL DIAGNOSTIC performedby Mihcael Lobato MD at [facility] COLONOSCOPY, DIAGNOSTIC (RECTUM) 05/21/2023 poor prep/biopsies show adenomatous polyps/recall 1 year/COLONOSCOPY FLEXIBLE PROXIMAL DIAGNOSTIC performed by Michael Lobato MD at ENDOSCOPY [facility] CYSTOSCOPY 1995 hematuria eval- negative except stone- calcium oxalate IR BIOPSY 08/01/2023 Past Medical History: Diagnosis Date Calculus of ureter R ureter- pass spontaneously 1994 Dyslipidemia, goal LDL below 160 2008 Hematuria, unspecified Mixed hyperlipidemia 04/15/2022 Other acne Testicular hypofunction Patient Active Problem List Diagnosis Code ADVANCE DIRECTIVE INFORMATION Calculus of ureter N20.1 Other acne L70.8 Testicular hypofunction E29.1 Vitamin D deficiency E55.9 Prediabetes R73.03 Erectile dysfunction N52.9 Dysmetabolic syndrome X E88.810 Mixed hyperlipidemia E78.2 Fatty liver K76.0 Constitutional: (-) fever and (-) chills Eyes: (+) corrective lenses ENT: (-) stridor Male : see HPI Neurology: (-) negative: no focal neurologic defect Psychiatry: (-) negative: no depression or anxiety Physical Exam Nursing note reviewed. Constitutional: General: He is not in acute distress. Appearance: Normal appearance. He is not ill-appearing or toxic-appearing. HENT: Head: Normocephalic and atraumatic. Right Ear: External ear normal. Left Ear: External ear normal. Nose: Nose normal. Mouth/Throat: Mouth: Mucous membranes are moist. Eyes: Extraocular Movements: Extraocular movements intact. Cardiovascular: Pulses: Normal pulses. Pulmonary: Effort: Pulmonary effort is normal. No respiratory distress. Abdominal: Palpations: Abdomen is soft. Tenderness: There is no abdominal tenderness. Genitourinary: Penis: Normal and circumcised. Testes: Normal. Right: Mass not present. Left: Mass not present. Comments: Minimal L testicular atrophy Musculoskeletal: Cervical back: Normal range of motion and neck supple. Lymphadenopathy: Cervical: No cervical adenopathy. Skin: Coloration: Skin is not cyanotic or pale. Neurological: Mental Status: He is alert and oriented to person, place, and time. Motor: No weakness. Gait: Gait normal. Psychiatric: Attention and Perception: Attention normal. Mood and Affect: Mood and affect normal. Impression/Plan: 57 yo male with persistent ED. Findings reviewed with patient. He wishes to try Trimix - will order. Possible etiologies of his EDare reviewed. Will recheck a.m. testosterone. Patient is reassured regarding his normal testicular volume. Will see back at the time of office TriMix injection. Above content is personally reviewed. Patient vocalizes good understanding of the treatment plan. Eduardo Geiger MD 1:02 PM 10/14/2023 documented in this encounter Nursing Notes * Laura Ochoa COAT PRESSER - 10/14/2023 4:17 PM EST 6 month ret ED, testicular atrophy PSA Results: Lab Results Component Value Date/Time PSA - [facility] 0.41 05/06/2023 12:41 PM PSA - [facility] 0.37 04/17/2022 10:00 AM PSA - [facility] 0.41 07/27/2021 04:18 PM PSA - [facility] 0.50 12/31/2018 09:08 AM PSA - [facility] 0.42 12/20/2008 08:32 AM PSA - [facility] 0.41 06/11/2005 09:05 AM PSA SCREENING 0.42 10/18/2008 08:03 AM PSA SCREENING RESULTS RECHECKED 10/18/2008 08:03 AM PSA SCREENING 0.44 06/24/2006 11:48 AM C/o- patient states same concerns documented in this encounter Plan of Treatment Upcoming Encounters Date Type Department Care Team (Late st Contact Info) Description 02/16/2024 2:30 PM EDT Office Visit Otolaryngology [facility] [address] [facility] [place] [address] [place] Beasley DO 132 [facility] [place] [address] 02/23/2024 2:45 PM EDT Office Visit Urology, [facility] [address] [facility] [place] [address] Eduardo [facility] MD [facility] [address] [place] [address] 03/29/2024 12:40 PM EDT Office Visit General Internal Medicine [facility] [address] [facility] [place] [address] Ford Marsh MD [address] [facility] [place] [address] Scheduled Orders Name Type Priority Associated Diagnoses Orde r Schedule TESTOSTERONE: TOTAL, FREE AND BIOAVAILABLE Lab Routine Erectile dysfunction due to diseases classified elsewhere BPH without obstruction/lower urinary tract symptoms Expected: 10/14/2023, Expires: 10/14/2024 Scheduled Procedures Name Priority Associated Diagnoses Date/Ti me COLONOSCOPY FLEXIBLE PROXIMA L DIAGNOSTIC Recall History of colonic polyps Health Maintenance Due Date Last Done Comments Hepatitis B (1 of 3 - 3-dose series) 1965 Zoster Vaccines (2 of 2) 06/15/2021 04/20/2021 COVID-19 Vaccine ( - season) 2023 10/10/2022, 11/16/2021, 12/21/2020, Additional history [...] as of this encounter Visit Diagnoses Diagnosis Erectile dysfunction due to diseases classified elsewhere- Primary BPH without obstruction/lower urinary tract symptoms Hypertrophy of prostate without urinary obstruction and other lower urinary tract symptoms (LUTS) documented in this encounter Care Teams Heat Transfer Technician Relationship Specialty Start Date End Date Ford Marsh MD [address] [place] [address] PCP - General Internal Medicine 04/19/22 documented as of this encounter
--- OUTSIDE RECORDS SUMMARY | 2023-11-10 11:02 | External Medical Summary | Summary of Care ---
Author Name Unknown Organization [facility] Address [address] [place] [address] Phone [phone] Care Team Providers Care Cell Tender Helper Name Role Phone Ford Wise MD Primary Care Provider + Reason for Visit * Reason Onset Date Comments Films 08/29/2023 Encounter Details Date Type Department Care Team Description 08/29/2023 Telephone Radiology Film File [address] [place] [address] Tod Bates PA-C [address] [place] [address] Films Allergies No known active allergiesdocumented as of this encounter (statuses as of 09/19/2023) Medications Medication Sig Dispensed Refills Start Date [...] as of this encounter (statuses as of 09/19/2023) Active Problems Problem Noted Date Mixed hyperlipidemia 04/15/2022 Fatty liver 04/15/2022 Erectile dysfunction 07/10/2021 Dysmetabolic syndrome X 07/10/2021 Prediabetes 01/13/2018 Overview: Per Prediabetes protocol #1 Vitamin D deficiency 05/15/2017 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 Calculus of ureter 06/18/2005 Other acne 06/18/2005 documented as of this encounter (statuses as of 09/19/2023) Resolved Problems Problem Noted Date Resolved Date Dyslipidemia, goal LDL below 160 2008 04/15/2022 Malaise and fatigue 10/14/2008 03/10/2013 Disease of pituitary gland 10/14/200803/10 documented as of this encounter (statuses as of 09/19/2023) Immunizations Name Administration Dates Next Due COVID-19 mRNA, LNP-s, No Pre serve, 2-Dose Series (AppsFunder) 11/16/2021,12/21/2020,11/30/2020 Covid-19, Mrna, Lnp-s, Pf, B ivalent, 30 Mcg, IM, 12 yrs and above (Pfizer) 10/10/2022 HEP A - Hepatitis A (Adult > 18 yrs) 04/04/2009 Meningococcal Conjugate Vacc ine (Menactra/Menveo) 04/04/2009 SEASONAL INFLUENZA, PF, 6 M & Above, IM , (FLULAVAL or FLUZONE) 09/10/2022 Seasonal Influenza, Quadriva lent, No Preserve, IM 08/29/2021,09/06/2020,09/20/2019,10/08 Seasonal Influenza, Split, I IV3, With Preserve, Inj 09/03/2017,08/29/2016,09/19/2015,09/14,09/15/2013,10/19/2012,09/11/2011 ,09/26/2010 TD, Preservative Free 04/20/2021 TDAP (age 11 and older)(Adacel) 03/20/2011,04/04 Zoster Vaccine Recombinant (Shingrix) 04/20/2021 documented as [...] * Telephone Encounter - ANUJ Alfaro - 09/11/2023 2:18 PM EDT Images claimed to be not received by [facility]. Mailing disc as requested by patient to ensure continued care. Ventura Patterson MD - ENT [address] [id number] Ph.[phone] * Telephone Encounter - ANUJ Alfaro - 08/29/2023 8:32 AM EDT Patient requested for recent 07-24-23 to present head/neck imaging to be sent to [facility] -Dr Kingsley Patterson. [place] Authorization to Release on file. Images pushed to [facility] Life Image account, Job ID: [id number] Report(s) faxed to [phone]. Successful fax confirmation received. documented in this encounter Plan of Treatment Upcoming Encounters Date Type Specialty Care Team Description 10/14/2023 Office Visit Urology Eduardo Geiger MD [address] [place] [id number] 02/16/2024 Office Visit Otolaryngology [place] Beasley DO [address] [place] [address] 03/29/2024 Office Visit Internal Medicine [place] Wise MD [address] [place] [address] Scheduled Procedures Name Priority Associated Diagnoses Date/Ti me COLONOSCOPY FLEXIBLE PROXIMA L DIAGNOSTIC Recall History of colonic polyps Health Maintenance Due Date Last Done Comments Hepatitis B (1 of 3 - 3-dose series) 1965 Zoster Vaccines (2 of 2) 06/15/2021 04/20/2021 COVID-19 Vaccine (5 - 2022- season) 2023 10/10/2022, 11/16/2021, 12/21/2020, Additional history [...] filedocumented as of this encounter Care Teams Cell Tender Helper Relationship Specialty Start Date End Date Ford Wise MD [address] [place] [address] PCP - General Internal Medicine 04/19/22 documented as of this encounter
--- OUTSIDE RECORDS SUMMARY | 2023-11-10 11:02 | External Medical Summary | Summary of Care ---
Author Name Unknown Organization [facility] Address [address] [place] [address] Phone [phone] Care Team Providers Care Repairer Shoe Sticks Name Role Phone Ford Wise MD Primary Care Provider + Reason for Visit * Reason Onset Date Comments Films 08/29/2023 Encounter Details Date Type Department Care Team Description 08/29/2023 Telephone Radiology Film File [address] [place] [address] Tod Bates PA-C [address] [place] [address] Films Allergies No known active allergiesdocumented as of this encounter (statuses as of 09/11/2023) Medications Medication Sig Dispensed Refills Start Date [...] as of this encounter (statuses as of 09/11/2023) Active Problems Problem Noted Date Mixed hyperlipidemia 04/15/2022 Fatty liver 04/15/2022 Erectile dysfunction 07/10/2021 Dysmetabolic syndrome X 07/10/2021 Prediabetes 01/13/2018 Overview: Per Prediabetes protocol #1 Vitamin D deficiency 05/15/2017 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 Calculus of ureter 06/18/2005 Other acne 06/18/2005 documented as of this encounter (statuses as of 09/11/2023) Resolved Problems Problem Noted Date Resolved Date Dyslipidemia, goal LDL below 160 2008 04/15/2022 Malaise and fatigue 10/14/2008 03/10/2013 Disease of pituitary gland 10/14/200803/10 documented as of this encounter (statuses as of 09/11/2023) Immunizations Name Administration Dates Next Due COVID-19 mRNA, LNP-s, No Pre serve, 2-Dose Series (Dapt) 11/16/2021,12/21/2020,11/30/2020 Covid-19, Mrna, Lnp-s, Pf, B ivalent, [...] Images claimed to be not received by [facility]. Mailing disc as requested by patient to ensure continued care. Ventura Patterson MD - ENT [address] [id number] Ph.[phone] * Telephone Encounter - ANUJ Alfaro - 08/29/2023 8:32 AM EDT Patient requested for recent 07-24-23 to present head/neck imaging to be sent to [facility] -Dr Kingsley Patterson. [place] Authorization to Release on file. Images pushed to [facility] Life Image account, Job ID: [id number] Report(s) faxed to [phone]. Successful fax confirmation received. documented in this encounter Plan of Treatment Upcoming Encounters Date Type Specialty Care Team Description 10/14/2023 Office Visit Urology Eduardo Geiger MD [address] [place] [phone] 02/16/2024 Office Visit Otolaryngology [place] Beasley DO [address] [place] [address] 03/29/2024 Office Visit Internal Medicine [place] Wise MD [address] [place] [address] Scheduled Procedures Name Priority Associated Diagnoses [...] filedocumented as of this encounter Care Teams Repairer Shoe Sticks Relationship Specialty Start Date End Date Ford Wise MD [address] [place] [address] PCP - General Internal Medicine 04/19/22 documented as of this encounter
--- OUTSIDE RECORDS SUMMARY | 2023-11-10 11:02 | External Medical Summary | Summary of Care ---
Author Name Unknown Organization [facility] [address] [address] Phone [phone] Care Team Providers Care Consumer Sales Representative Name Role Phone Ford Wise MD Primary Care Provider + Reason for Visit * Reason Comments NEW PATIENT Discuss sx Encounter Details Date Type Department Care Team Description 08/18/2023 Office Visit Otolaryngology [facility] [address] [place] [id number] Grant Beasley DO [address] [place] [address] Warthin's tumor* Allergies No known active allergiesdocumented as of this encounter (statuses as of 08/18/2023) Medications Medication Sig Dispensed Refills Start Date [...] DAY 90 Tablet 1 02/14/2023 02/14/2024 Active Hospital, Clinic, or Other Facility Administered Medication Ordered Dose Route Frequency Start Date End Date Status sodium chloride 0.9 % flush/inj 10 mL 10 mL IV PUSH ONCE 08/18/2023 08/19/2023 Active documented as of this encounter (statuses as of 08/18/2023) Active Problems Problem Noted Date Mixed hyperlipidemia 04/15/2022 Fatty liver 04/15/2022 Erectile dysfunction 07/10/2021 Dysmetabolic syndrome X 07/10/2021 Prediabetes 01/13/2018 Overview: Per Prediabetes protocol #1 Vitamin D deficiency 05/15/2017 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 Calculus of ureter 06/18/2005 Other acne 06/18/2005 documented as of this encounter (statuses as of 08/18/2023) Resolved Problems Problem Noted Date Resolved Date Dyslipidemia, goal LDL below 160 2008 04/15/2022 Malaise and fatigue 10/14/2008 03/10/2013 Disease of pituitary gland 10/14/200803/10 documented as of this encounter (statuses as of 08/18/2023) Immunizations Name Administration Dates Next Due COVID-19 mRNA, LNP-s, No Pre serve, 2-Dose Series ([employer]) 11/16/2021,12/21/2020,11/30/2020 Covid-19, Mrna, Lnp-s, Pf, B ivalent, [...] on file documented as of this encounter Last Filed Vital Signs Vital Sign Reading Time Taken Comments Blood Pressure - - Pulse - - Temperature - - Respiratory Rate - - Oxygen Saturation - - Inhaled Oxygen Concentration - - Weight 80.8 kg (178 lb 1.6 oz) 08/18/2023 2:16 P M EDT Height 174 cm (5' 8.5") 08/18/2023 2:16 PM EDT Body Mass Index 26.69 08/18/2023 2:16 PM EDT documented in this encounter Progress Notes * Grant Beasley, DO - 08/18/2023 2:34 PM EDT 08/18/2023 HISTORY OF PRESENT ILLNESS This 57 year old male is seen at the request of Ford Wise MD for the initial evaluationof right parotid mass. Patient noticed this about a month ago. 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 Had a CT scan of the neck today. I reviewed the images and the report. Revealed a 2.7 cm mass in the superficial lobe of the parotid. He denies any change since he 1st noticed it a month ago. Denies any pain. No issueswith any facial nerve weakness. Problem List Patient Active Problem List Diagnosis Code ADVANCE DIRECTIVE INFORMATION Calculus of ureter N20.1 Other acne L70.8 Testicular hypofunction E29.1 Vitamin D deficiency E55.9 Prediabetes R73.03 Erectile dysfunction N52.9 Dysmetabolic syndrome X E88.81 Mixed hyperlipidemia E78.2 Fatty liver K76.0 Past Medical History: Diagnosis Date Calculus of ureter R ureter- pass spontaneously 1994 Dyslipidemia, goal LDL below 160 2008 Hematuria, unspecified Mixed hyperlipidemia 04/15/2022 Other acne Testicular hypofunction Past Surgical History: Procedure Laterality Date COLONOSCOPY, DIAGNOSTIC (RECTUM) 01/23/2018 adenomatous polyps, diverticulosis, repeat 5 yrs/COLONOSCOPY FLEXIBLE PROXIMAL DIAGNOSTIC performedby Michael Lobato MD at END[facility]COPY [facility] COLONOSCOPY, DIAGNOSTIC (RECTUM) 05/21/2023 poor prep/biopsies show adenomatous polyps/recall 1 year/COLONOSCOPY FLEXIBLE PROXIMAL DIAGNOSTIC performed by Michael Lobato MD at ENDOSCOPY [facility] CYSTOSCOPY 1995 hematuria eval- negative except stone- calcium oxalate IR BIOPSY 08/01/2023 Medications Current Outpatient Medications Medication Sig Dispense Refill Cholecalciferol (VITAMIN D3) 2000 units Capsule Take 1 Capsule by mouth in the morning. 30 Cap 5 Vitamin E 100 UNIT Oral Tablet Take 4 Tablets by mouth in the morning. Atorvastatin Calcium 10 MG Oral Tablet (Lipitor) TAKE ONE TABLET BY MOUTH EVERY DAY 90 Tablet 1 Current Facility-Administered Medications Medication Dose Route Frequency Provider Last Rate Last Admin sodium chloride 0.9 % flush/inj 10 mL 10 mL IV Push Once Janes Venegas MD Allergies Review of patient's allergies indicates: No Known Allergies Family History Family History Problem Relation Age of Onset Diabetes Mother Asthma Mother Glaucoma Father Other (Other) Other no first degree relatives with cancer Diabetes Grandfather (Maternal) Diabetes Grandfather (Paternal) Social History Social History Tobacco Use Smoking status: Never Smokeless tobacco: Never Substance Use Topics Alcohol use: No Vaping/E-Cigarette Use Vaping/E-Cigarette Use Never User Vaping/E-Cigarette Substances Vaping/E-Cigarette Devices Review of Systems Negative for constitutional, eyes, cardiac, pulmonary, hepatic, renal, digestive, hematologic, epileptic, syncopal, musculo-skeletal, mental health, integumentary, hypertensive, lipid, arthritic, diabetic, thyroid, or neurologic disorders (except as listed in the PMH and Problem List). Physical Examination: Ht 1.74 m (5' 8.5") | Wt 80.8 kg (178 lb 1.6 oz) | BMI 26.69 kg/m | BSA 1.98 m PHYSICAL EXAM General: This is a healthy appearing male who appears his stated age. The patient is alert and appropriately verbally conversant without hoarseness. Face: The face was inspected and no cutaneous masses or lesions were visualized. There was no erythema or edema noted. Facial movement was symmetric without weakness. No skin lesions were detected. There was no sinus tenderness elicited. Right parotid mass is palpable. It is mobile and non-fixed. Eyes: Extra-ocular muscle function was intact. No nystagmus was observed. Pupils were equal. Cranial Nerves: Cranial nerves II, III, IV, and were noted to be intact via extra-ocular muscle movement testing. Cranial nerve VII noted to be intact and symmetric by facial movement. Nose: Examination of the nose revealed no masses, polyps, mucopus, or other lesion. The nasal septum was non-obstructing. The turbinates were without abnormality. Ears: Examination of the ears revealed that the auricles were normally formed with no lesions. Neck: Visualization and palpation of the neck revealed no mass lesions, no thyromegaly or thyroid masses. No skin lesions or inflammatory processes were detected. The cervical musculature was normal to palpation. Lymphatics (cervical): There were no palpable lymph nodes in the posterior triangle, submandibular triangle, jugulodigastric region, or central neck. Lungs: Breathing quietly. No use of accessory muscles. Heart: Regular rate. No JVD. Assessment: 57-year-old male with a right-sided parotid mass (Warthin's tumor) Plan: - discussed option of superficial parotidectomy for excision. It is a fair size. Thus I did recommend surgical removal. Patient would like to hold off for now. He has a lot going on with work and home. I did discuss that there is no urgency to the surgical removal as these are benign entities. We will have him return in 6 months to discuss surgery. If any change in the interim he will call the off ice. I spent a total of 45 minutes on the date of service in preparation, delivery, and documentation ofthe care provided to the above patient, excluding any time spent on the performance of any procedures or separately billable services. Grant Beasley DO, [facility] Otol[facility] [place] 08/18/2023 2:58 PM documented in this encounter Plan of Treatment Upcoming Encounters Date Type Specialty Care Team Description 10/14/2023 Office Visit Urology Eduardo Geiger MD [address] [place] [address] 02/16/2024 Office Visit Otolaryngology Grant Beasley DO [address] [place] [address] 03/29/2024 Office Visit Internal Medicine Ford Wise MD [address] [facility], [place] [id number] Scheduled Procedures Name Priority Associated Diagnoses Date/Ti [...] on patient's age to complete this topic Hepatitis C Screening Completed 04/17/2022 , 04/17/2022, 04/17/2022 COVID-19 Vaccine Completed 10/10/2022, , 12/21/2020, Additional [...] as of this encounter Visit Diagnoses Diagnosis 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
--- OUTSIDE RECORDS SUMMARY | 2023-11-10 11:03 | External Medical Summary | Summary of Care ---
Author Name Unknown Organization [facility] Address [address] [place] [address] Phone [phone] Care Team Providers Care Kickboxing Instructor Name Role Phone Ford Wise MD Primary Care Provider + Reason for Referral * Precert (Within 10 days (routine)) - Pending Review Specialty Diagnoses / Procedures Referred By Lucie sorto Referred To Contact Radiology Diagnoses Warthin tumor Parotid mass Procedures CT NECK W CONTRAST Tod Bates PA-C [address] [facility] [place] [address] Referral ID Status Reason Start Date Expiration Date V isits Requested Visits Authorized [id number] Pending Review 08/11/2023 999 999 Encounter Details Date Type Department Care Team Description 08/11/2023 Telephone General Internal Medicine [facility] [place] [address] [facility] [place] [address] Tod Bates PA-C [address] [facility] [place] [address] Allergies No known active allergiesdocumented as of [...] mRNA, LNP-s, No Pre serve, 2-Dose Series ([employer]) 11/16/2021,12/21/2020,11/30/2020 Covid-19, Mrna, Lnp-s, Pf, B ivalent, [...] as of this encounter Miscellaneous Notes * Result Encounter Note - Tod Bates PA-C - 08/18/2023 1:27 PM EDT Upcoming appt with ENT * Telephone Encounter - Tod Bates PA-C - 08/11/2023 3:12 PM EDT ENT recommending CT neck with contrast prior to visit to curb setter helper surgical discussion. Ordered. Please assist with scheduling. documented in this encounter Plan of Treatment Upcoming Encounters Date Type Specialty Care Team Description 08/18/2023 Office Visit Otolaryngology Grant Beasley DO [address] [place] [address] 10/14/2023 Office Visit Urology Eduardo Geiger MD [address] [place] [address] [place] [address] 03/29/2024 Office Visit Internal Medicine [facility], Ford Winston MD [address] [place] [address], [place] [address] Scheduled Procedures Name Priority Associated Diagnoses Date/Ti [...] Not on filedocumented as of this encounter Procedures Procedure Name Priority Date/Time Associated Diagnosis Comments CT NECK W CONTRAST Routine 08/18/2023 12 :10 PM EDT Warthin tumor Parotid mass documented in this encounter Results * CT NECK W CONTRAST (08/18/2023 12:10 PM EDT) Anatomical Region Laterality Modality Neck, Head, Sinus Computed Tomog laverne 08/18/2023 1:21 PM EDT Narrative 08/18/2023 1:19 PM EDT EXAM: CT NECK WITH CONTRAST HISTORY Warthin's tumor COMPARISON: Neck sonogram 07/24/2023 TECHNIQUE: CT neck with intravenous contrast was performed. FINDINGS: AERODIGESTIVE TRACT: No mass or abnormal enhancement along the aerodigestive tract. Midline position of the vocal folds. LYMPH NODES: No pathologically enlarged lymph nodes identified. No necrotic, cystic, or hemorrhagic lymph nodes. SALIVARY GLANDS: Relatively well-circumscribed heterogeneously enhancing mass measuring 2.2 x 2.7 x 2.4 cm (AP X TV X CC) within the posterior aspect of the right superficial parotid lobe (series 2, image 50; series 6, image 86). The mass focally abuts the posterior wall of the retromandibular vein without extension into the deep lobe of the parotid gland. The mass bulges from the posterior surface of the parotid gland, focally indenting the subjacent right sternocleidomastoid muscle with preservation of an intervening fat plane. No marginal irregularity or haziness associated with the mass to suggest extraglandular extension or invasion of adjacent structures. No other salivary gland lesions identified. Unremarkable appearance of the left parotid and bilateral submandibular glands. THYROID: Unremarkable. VASCULATURE: Normal course of the common and internal carotid arteries. The internal jugular veins are patent. PARANASAL SINUSES: Mucosal thickening throughout the paranasal sinuses with opacification of multiple ethmoid air cells. Fluid and foamy debris within the maxillary and sphenoid sinuses. Mucous retention cyst within the left sphenoid sinus. The mastoid air cells are clear. DENTITION: Multiple dental fillings. Mild bilateral temporomandibular joint arthrosis with flattening and sclerosis of the mandibular condylar heads. ORBITS AND INTRACRANIAL STRUCTURES: Unremarkable. VISUALIZED THORACIC STRUCTURES: No focal pulmonary consolidations. MUSCULOSKELETAL: Multilevel degenerative changes of the cervical spine. IMPRESSION: Well-circumscribed, heterogeneous mass within the superficial lobe of the right parotid gland without evidence of extraglandular extension or invasion of adjacent structures. 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 No other salivary gland lesions identified. No lymphadenopathy. Procedure Note Mat Miller MD - 08/18/2023 EXAM: CT NECK WITH CONTRAST HISTORY Warthin's tumor COMPARISON: Neck sonogram 07/24/2023 TECHNIQUE: CT neck with intravenous contrast was performed. FINDINGS: AERODIGESTIVE TRACT: No mass or abnormal enhancement along theaerodigestive tract. Midline position of the vocal folds. LYMPH NODES: No pathologically enlarged lymph nodes identified. Nonecrotic, cystic, or hemorrhagic lymph nodes. SALIVARY GLANDS: Relatively well-circumscribed heterogeneously enhancingmass measuring 2.2 x 2.7 x 2.4 cm (AP X TV X CC) within the posterioraspect of the right superficial parotid lobe (series 2, image 50; series6, image 86). The mass focally abuts the posterior wall of theretromandibular vein without extension into the deep lobe of the parotidgland. The mass bulges from the posterior surface of the parotid gland,focally indenting the subjacent right sternocleidomastoid muscle withpreservation of an intervening fat plane. No marginal irregularity orhaziness associated with the mass to suggest extraglandular extension orinvasion of adjacent structures. No other salivary gland lesionsidentified. Unremarkable appearance of the left parotid and bilateralsubmandibular glands. THYROID: Unremarkable. VASCULATURE: Normal course of the common and internal carotid arteries.The internal jugular veins are patent. PARANASAL SINUSES: Mucosal thickening throughout the paranasal sinuseswith opacification of multiple ethmoid air cells. Fluid and foamy debriswithin the maxillary and sphenoid sinuses. Mucous retention cyst withinthe left sphenoid sinus. The mastoid air cells are clear. DENTITION: Multiple dental fillings. Mild bilateral temporomandibularjoint arthrosis with flattening and sclerosis of the mandibular condylarheads. ORBITS AND INTRACRANIAL STRUCTURES: Unremarkable. VISUALIZED THORACIC STRUCTURES: No focal pulmonary consolidations. MUSCULOSKELETAL: Multilevel degenerative changes of the cervical spine. IMPRESSION: Well-circumscribed, heterogeneous mass within the superficial lobe of theright parotid gland without evidence of extraglandular extension orinvasion of adjacent structures. Findings are consistent with a Warthin'stumor. No other salivary gland lesions identified. No lymphadenopathy. 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
--- OUTSIDE RECORDS SUMMARY | 2023-11-10 11:03 | External Medical Summary ---
Author Name Unknown Address Unknown Organization [id number]:[facility] [place] [address] [facility] [address] Laboratory Report Ordering Provider Test Date Status FARTUN BARRIENTOS 08/16/2023 11:17:10 Final Observation Date Value Abnormality Reference (Units ) Status HbA1C 08/16/2023 11:17:10 6.1 Above high normal 4. 0-5.6 (%) Final The use of HbA1c to monitor glycemic status is based on normal hemoglobin and HbA composition. This test should not be used in patients with abnormal hemoglobin that affects the half life of the red blood cell or the in vivo glycation rates. Glucose, estimated average 08/16/2023 11:17:10 128 Above high normal <126 (mg/dL) Bo erazo Performing Location [facility] [place] [address] [facility] [address]
--- OUTSIDE RECORDS SUMMARY | 2023-11-10 11:03 | External Medical Summary | Summary of Care ---
Author Name Unknown Organization [facility] Address [address] [place] [address] Phone [phone] Care Team Providers Care Knife Changer Name Role Phone Ford Wise MD Primary Care Provider + Reason for Visit * Reason Comments Other R side cheek/jaw swe lling, slightly decreased x's 5 days. Ultrasound already done. Encounter Details Date Type Department Care Team Description 07/28/2023 Office Visit General Internal Medicine [facility] [address] [facility] [place] [id number] Tod Bates PA-C [address] [place] [address] Parotid mass*; Mixed hyperlipidemia; Prediabetes Allergies No known active allergiesdocumented as of this encounter (statuses as of 07/28/2023) Medications Medication Sig Dispensed Refills Start Date End Date Status Cholecalciferol (VITAMIN D3) 2000 units Capsule Take 1 Capsule by mouth in the morning. 30 Cap 5 09/20/2019 Active Vitamin E 100 UNIT Oral Tablet Take 4 Tablets by mouth in the morning. 0 Active Atorvastatin Calcium 10 MG Oral Tablet (Lipitor)Indicat ions:Dyslipidemi a, goal LDL below 160 TAKE ONE TABLET BY MOUTH EVERY DAY 90 Tablet 1 02/14/2023 4 Active Sildenafil Citrate 20 MG Oral Tablet (Revatio) Take 1-5 Tablets (20-100 mg) by mouth daily as needed for Erectile Dysfunction. 60 Tablet 6 10/08/2022 3 Discontinued Sildenafil Citrate 20 MG Oral Tablet (Revatio) TAKE 1-5 TABLETS BY MOUTH DAILY NEEDED FOR ERECTILE DYSFUNCTION 60 Tablet 0 10/08/2022 3 Discontinued Tadalafil 5 MG Oral Tablet (Cialis) TAKE ONE TABLET BY MOUTH EVERY DAY NEEDED FOR ERECTILE DYSFUNCTION 90 Tablet 3 09/10/2022 3 Discontinued Terbinafine HCl 250 MG Oral Tablet (Lamisil)Indicat ions:Onychomycos is TAKE 1 TABLET BY MOUTH EVERY MORNING FOR 12 WEEKS FOR TOENAIL FUNGUS 84 Tablet 1 01/20/2023 3 Discontinued Hydrocort-Pramox ine (Perianal) 2.5-1 % External Cream APPLY TO RECTUM DAILY FOR TWO TO FOUR WEEKS 30 g 3 12/24/2022 3 Discontinued documented as of this encounter (statuses as of 07/28/2023) Active Problems Problem Noted Date Mixed hyperlipidemia 04/15/2022 Fatty liver 04/15/2022 Erectile dysfunction 07/10/2021 Dysmetabolic syndrome X 07/10/2021 Prediabetes 01/13/2018 Overview: Per Prediabetes protocol #1 Vitamin D deficiency 05/15/2017 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 Calculus of ureter 06/18/2005 Other acne 06/18/2005 documented as of this encounter (statuses as of 07/28/2023) Resolved Problems Problem Noted Date Resolved Date Dyslipidemia, goal LDL below 160 2008 04/15/2022 Malaise and fatigue 10/14/2008 03/10/2013 Disease of pituitary gland 10/14/200803/10 documented as of this encounter (statuses as of 07/28/2023) Immunizations Name Administration Dates Next Due COVID-19 mRNA, LNP-s, No Pre serve, 2-Dose Series ([employer]) 11/16/2021,12/21/2020,11/30/2020 Covid-19, Mrna, Lnp-s, Pf, B ivalent, [...] Date Smoking Tobacco: Never Smokeless Tobacco: Never Tobacco Cessation:Counseling Given: Not Answered Alcohol Use Standard Drinks/Week Comments No 0 [...] Sign Reading Time Taken Comments Blood Pressure 114/72 07/28/2023 12:35 PM EDT Pulse 63 07/28/2023 12:35 PM EDT Temperature 36 C (96.8 F) 07/28/2023 12:35 PM EDT Respiratory Rate - - Oxygen Saturation 98% 07/28/2023 12:35 PM EDT Inhaled Oxygen Concentration - - Weight 82.6 kg (182 lb) 07/28/2023 12:35 PM EDT Height 174 cm (5' 8.5") 07/28/2023 12:35 PM EDT Body Mass Index 27.27 07/28/2023 12:35 PM EDT documented in this encounter Progress Notes * Tod Bates PA-C - 07/28/2023 12:35 PM EDT Images from the original note were not included. 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 Chief Complaint Patient presents with Other R side cheek/jaw swelling, slightly decreased x's 5 days. Ultrasound already done. HPI: 57 y/o male with HLD, prediabetes, fatty liver, ED seen today with complaint of right sided face/cheek swelling for 5 days. No alcohol or tobacco use. Family hx colorectal cancers. Was having back pain, but resolved with NSAID use. Took terbinafine for onychomycosis of left great toe. Some improvement noted in nail growing in. Hewqas able to cut back some of the thick nail. PMH: Patient Active Problem List Diagnosis Code ADVANCE DIRECTIVE INFORMATION Calculus of ureter N20.1 Other acne L70.8 Testicular hypofunction E29.1 Vitamin D deficiency E55.9 Prediabetes R73.03 Erectile dysfunction N52.9 Dysmetabolic syndrome X E88.81 Mixed hyperlipidemia E78.2 Fatty liver K76.0 Current Outpatient Medications Medication Sig Dispense Refill [...] of patient's allergies indicates: No Known Allergies All other review of systems reviewed and negative other than mentioned in HPI. Objective: BP 114/72 | Pulse 63 | Temp 36 C (96.8 F) | Ht 1.74 m (5' 8.5") | Wt 82.6 kg (182 lb) | SpO2 98% | BMI 27.27 kg/m | BSA 2 m US HEAD AND NECK Order: [id number] Status: Final result Visible to patient: Yes (seen) Next appt: 10/14/2023 at 04:15 PM in *[facility]* (Eduardo Geiger MD) Dx: Lump in neck 1 Result Note Details Reading Physician Reading Date Result Priority Ford Xiao MD [phone] 07/24/2023 Kolby Thompson DO [phone] 07/24/2023 Narrative & Impression EXAM US HEAD AND NECK-07/24/2023 2:31 pm HISTORY Right mandibular swelling COMPARISON None. TECHNIQUE Real-time ultrasonography of the parotid region in the region of palpable abnormality as directed by the patient. FINDINGS Solid, lobulated, hypoechoic parotid mass measuring 2.8 x 2.0 x 2.1 cm with internal cystic structures. Color flow is not demonstrated. IMPRESSION IMPRESSION Solid, hypoechoic right parotid mass. Recommend biopsy for further characterization. I have personally reviewed this examination and agree with the resident/fellow physician's interpretation. Physical Exam Constitutional: General: He is not in acute distress. Appearance: He is normal weight. He is not toxic-appearing. HENT: Head: Comments: Edema and firm nodule at angle of jaw on right Right Ear: Tympanic membrane normal. Ears: Comments: Cotton removed with forceps from right ear canal Lymphadenopathy: Cervical: No cervical adenopathy. Skin: Comments: Brown thick nail of left great toe. Smooth appearance at base. Neurological: Mental Status: He is alert. ASSESSMENT: Parotid mass (Primary) - IR BIOPSY - CYTOLOGY Recommend above for definitive recommendations. Most likely benign adenoma. Mixed hyperlipidemia - COMPREHENSIVE METABOLIC PANEL; Future; Expected date: 07/28/2023 - LIPID PANEL WITH DIRECT LDL IF TG IS HIGH; Future; Expected date: 07/28/2023 Lipitor Prediabetes - HEMOGLOBIN A1C; Future; Expected date: 07/28/2023 Follow Up: Return if symptoms worsen or fail to improve. Tod Bates PA-C documented in this encounter Nursing Notes * Cayla Pham LPN - 07/28/2023 12:33 PM EDT Chief Complaint Patient presents with Other R side cheek/jaw swelling, slightly decreased x's 5 days. Ultrasound already done. documented in this encounter Plan of Treatment Upcoming Encounters Date Type Specialty Care Team Description 10/14/2023 Office Visit Urology Eduardo Geiger MD [address] [place] [address] [place] [id number] 03/29/2024 Office Visit Internal Medicine Ford Wise MD [address] [place] [address] Scheduled Orders Name Type Priority Associated Diagnoses Orde r Schedule IR BIOPSY Medical Imaging Routine Parotid mass Ordered: 07/28/2023 CYTOLOGY Pathology Routine Parotid mass Ordered: 07/28/2023 HEMOGLOBIN A1C Lab Routine Prediabetes Expected: 07/28/2023 (Approximate), Expires: 07/27/2024 COMPREHENSIVE METABOLIC PANEL Lab Routine Mixed hyperlipidemia Expected: 07/28/2023 (Approximate), Expires: 07/27/2024 LIPID PANEL WITH DIRECT LDL IF TG IS HIGH Lab Routine Mixed hyperlipidemia Expected: 07/28/2023, Expires: 07/28/2024 Scheduled Procedures Name Priority Associated Diagnoses Date/Ti me COLONOSCOPY FLEXIBLE PROXIMA L DIAGNOSTIC Recall History of colonic polyps Health Maintenance Due Date Last Done Comments Hepatitis B (1 of 3 - 3-dose series) 1965 Zoster Vaccines (2 of 2) 06/15/2021 04/20/2021 HbA1c 04/17/2023 04/17/2022, 07/02, 04/21/2021, Additional history exists Influenza Vaccine (FLU shot) (#1) 2023 09/10/2022, 08/29/2021, 09/06/2020, Additional history exists Depression Screening, Annual for Pts 12 and Over 11/12/2023 11/12/2022 COLONOSCOPY-ANNUAL AGES 18-100 05/21/2024 05/21/2023, 05/21/2023, 01/23/2018, Additional history exists Lipid Panel 04/17/2027 04/17/2022, 04/01, 06/01/2020, Additional history exists DTaP,Tdap,and Td Vaccines (4 [...] as of this encounter Visit Diagnoses Diagnosis Parotid mass- Primary Swelling, mass, or lump in head and neck Mixed hyperlipidemia Prediabetes Other abnormal glucose documented in this encounter Care Teams Knife Changer Relationship Specialty Start Date End Date Ford Wise MD [address] [place] [id number] PCP - General Internal Medicine 04/19/22 documented as of this encounter
--- OUTSIDE RECORDS SUMMARY | 2023-11-10 11:03 | External Medical Summary | Summary of Care ---
Author Name Unknown Organization [facility] Address [address] [place] [address] Phone [phone] Care Team Providers Care Senior Storage Engineer Name Role Phone Ford Wise MD Primary Care Provider + Reason for Visit * Auth/Cert Specialty Diagnoses / Procedures Referred By Lucie t Referred To Contact Diagnoses History of colon polyps History of colon polyps [Z86.010] Procedures COLONOSCOPY, DIAGNOSTIC (RECTUM) COLONOSCOPY FLEXIBLE PROXIMAL DIAGNOSTIC Referral ID Status Reason Start Date Expiration Date Visits Re quested Visits Authorized [id number] Encounter Details Date Type Department Care Team Description 05/21/2023 Hospital Encounter ENDO [facility], Endoscopy Room [facility] [address] [place] [phone] Michael Lobato MD [address] [place] [address] Colonoscopy Allergies No known active allergiesdocumented as of this encounter (statuses as of 05/21/2023) Medications Medication Sig Dispensed Refills Start Date End Date Status Cholecalciferol (VITAMIN D3) 2000 units Capsule Take 1 Capsule by mouth in the morning. 30 Cap 5 09/20/2019 Active Vitamin E 100 UNIT Oral Tablet Take 4 Tablets by mouth in the morning. 0 Active Sildenafil Citrate 20 MG Oral Tablet (Revatio) Take 1-5 Tablets (20-100 mg) by mouth daily as needed for Erectile Dysfunction. 60 Tablet 6 10/08/2022 Active Additional Information Patient not taking.Reported on 04/22/2023 Sildenafil Citrate 20 MG Oral Tablet (Revatio) TAKE 1-5 TABLETS BY MOUTH DAILY NEEDED FOR ERECTILE DYSFUNCTION 60 Tablet 0 10/08/2022 10/08/2023 Active Additional Information Patient not taking.Reported on 04/22/2023 Tadalafil 5 MG Oral Tablet (Cialis) TAKE ONE TABLET BY MOUTH EVERY DAY NEEDED FOR ERECTILE DYSFUNCTION 90 Tablet 3 09/10/2022 09/10/2023 Active Additional Information Patient not taking.Reported on 04/22/2023 Hydrocort-Pramoxin e (Perianal) 2.5-1 % External Cream (Analpram HC) Apply to rectum daily for 2 to 4 weeks 30 g 3 12/24/2022 Active Additional Information Patient not taking.Reported on 04/22/2023 Atorvastatin Calcium 10 MG Oral Tablet (Lipitor)Indicatio ns:Dyslipidemia, goal LDL below 160 TAKE ONE TABLET BY MOUTH DAILY 90 Tablet 1 02/14/2023 Active documented as of this encounter (statuses as of 05/21/2023) Active Problems Problem Noted Date Mixed hyperlipidemia 04/15/2022 Fatty liver 04/15/2022 Erectile dysfunction 07/10/2021 Dysmetabolic syndrome X 07/10/2021 Prediabetes 01/13/2018 Overview: Per Prediabetes protocol #1 Vitamin D deficiency 05/15/2017 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 Calculus of ureter 06/18/2005 Other acne 06/18/2005 documented as of this encounter (statuses as of 05/21/2023) Resolved Problems Problem Noted Date Resolved Date Dyslipidemia, goal LDL below 160 2008 04/15/2022 Malaise and fatigue 10/14/2008 03/10/2013 Disease of pituitary gland 10/14/200803/10 documented as of this encounter (statuses as of 05/21/2023) Immunizations Name Administration Dates Next Due COVID-19 mRNA, LNP-s, No Pre serve, 2-Dose Series ([employer]) 11/16/2021,12/21/2020,11/30/2020 Covid-19, Mrna, Lnp-s, Pf, B ivalent, 30 Mcg, IM, 12 yrs and above (Pfizer) 10/10/2022 HEP A - Hepatitis A (Adult > 18 yrs) 04/04/2009 Meningococcal Conjugate Vacc ine (Menactra/Menveo) 04/04/2009 Seasonal Influenza, Quadriva lent, No Preserve, 6 Mons & Above, IM 09/10/2022 Seasonal Influenza, Quadriva lent, No Preserve, [...] Sign Reading Time Taken Comments Blood Pressure 116/67 05/21/2023 10:02 AM EDT Pulse 66 05/21/2023 10:02 AM EDT Temperature 36.3 C (97.4 F) 05/21/2023 9:41 AM ED T Respiratory Rate 18 05/21/2023 10:02 AM EDT Oxygen Saturation 99% 05/21/2023 10:02 AM EDT Inhaled Oxygen Concentration - - Weight 80.7 kg (178 lb) 05/19/2023 12:19 PM EDT Height 174 cm (5' 8.5") 05/19/2023 12:19 PM EDT Body Mass Index 26.67 05/19/2023 12:19 PM EDT documented in this encounter H&P Notes * Michael Lobato MD - 05/21/2023 8:27 AM EDT Endoscopy Pre-Procedure Assessment Name: Justice Colemaneliceosidney Date: 05/21/2023 Time: 8:27 AM Procedure: Colonoscopy; with Indication(s) of colon polyp surveillance Endoscopy Pre-Procedure Assessment: Prior to the procedure, the patient was identified. The patient's history, medications and allergies were reviewed as per the Anesthesia Assessment. The patient is competent. The risks and benefits of the proposed procedure and the planned sedation were discussed with the patient. All questions were answered and informed consent for the procedure was obtained. This patient has undergone a preprocedural evaluation. A determination has been made to proceed with the planned procedure under [facility] procedural guidelines and the [facility] Non-Emergent, Elective Medical Services and Treatment Recommendations (published on 03-07-20). The community and hospital prevalence of COVID-19 has been discussed as well as this patient's specific risks associated with SARS-CoV-19 infection. Based upon the clinical acuity and patient-specific care considerations, this procedure is deemed a Tier II - Intermediate acuity treatment or service with either progression or the threat of progressive disease related to the delay in treatment. Not providing the service has the potential for increasing morbidity or mortality. Ht 1.74 m (5' 8.5") | Wt 80.7 kg (178 lb) | BMI 26.67 kg/m | BSA 1.97 m Prior to Admission medications Medication Sig Last Dose Discont. Atorvastatin Calcium 10 MG Oral Tablet (Lipitor) TAKE ONE TABLET BY MOUTH DAILY 05/19/2023 Vitamin E 100 UNIT Oral Tablet Take 4 Tablets by mouth in the morning. 05/19/2023 Cholecalciferol (VITAMIN D3) 2000 units Capsule Take 1 Capsule by mouth in the morning. 05/19/2023 Terbinafine HCl 250 MG Oral Tablet (Lamisil) TAKE 1 TABLET BY MOUTH EVERY MORNING FOR 12 WEEKS FOR TOENAIL FUNGUS Patient not taking: Reported on 05/19/2023 Not Taking Hydrocort-Pramoxine (Perianal) 2.5-1 % External Cream (Analpram HC) Apply to rectum daily for 2 to 4 weeks Patient not taking: Reported on 04/22/2023 Sildenafil Citrate 20 MG Oral Tablet (Revatio) Take 1-5 Tablets (20-100 mg) by mouth daily as needed for Erectile Dysfunction. Patient not taking: Reported on 04/22/2023 Sildenafil Citrate 20 MG Oral Tablet (Revatio) TAKE 1-5 TABLETS BY MOUTH DAILY NEEDED FOR ERECTILE DYSFUNCTION Patient not taking: Reported on 04/22/2023 Tadalafil 5 MG Oral Tablet (Cialis) TAKE ONE TABLET BY MOUTH EVERY DAY NEEDED FOR ERECTILE DYSFUNCTION Patient not taking: Reported on 04/22/2023 Review of patient's allergies indicates: No Known Allergies Physical Exam: Mental Status Examination: alert and oriented. General: nad, calm Airway Examination: normal oropharyngeal airway and neck mobility. Respiratory Examination: symmetrical excursion Abd:soft/ntd ASA Grade: III - A patient with severe systemic disease. After reviewing the risks and benefits, the patient was deemed in satisfactory condition to undergothe procedure. The anesthesia plan was to use general anesthesia. Michael Lobato MD 05/21/2023 documented in this encounter Procedure Notes * Ford Wise MD - 05/21/2023 8:28 AM EDTAssociated Order(s): COLONOSCOPY [facility] Patient Name: Justice Porras Procedure Date: 05/21/2023 8:28 AM Date of : 1965 Admit Type: Outpatient Note Status: Finalized Date of : 1965 Admit Type: Outpatient Age: 57 Room: Endo 3 Gender: Male Note Status: Finalized Procedure: Colonoscopy Indications: High risk colon cancer surveillance: Personal history of non- advanced adenoma Providers: Michael Lobato MD (Doctor) Referring MD: Ford Wise MD (Referring MD) Medicines: Propofol per Anesthesia Complications: No immediate complications. Estimated blood loss: None. Procedure: Pre-Anesthesia Assessment: - - Prior to the procedure, a History and Physical was performed, patient medications, allergies and sensitivities were reviewed. The patient's tolerance of previous anesthesia was reviewed. See [facility] for further details. - The risks, benefits, and alternatives of the procedure including the sedation options and risks were discussed with the patient. All questions were answered and informed consent was obtained. - Patient identification and proposed procedure were verified prior to the procedure by the physician and the nurse. The procedure was verified in the procedure room. - See [facility] for documentation of the pre-procedure assessment including ASA status. - After I obtained informed consent, the scope was carefully and meticulously passed under direct vision only when the lumen was definitively identified. CO2 insufflation was utilized throughout the entire procedure exclusively. After I obtained informed consent, the scope was passed under direct vision. All instruments were visually inspected immediately before and after removal from the patient to ensure they are fully intact. Throughout the procedure, the patient's blood pressure, pulse, and oxygen saturations were monitored continuously.The colonoscopy was performed without difficulty. The patient tolerated the procedure well. The quality of the bowel preparation was fair. The ePub [id number] Colonoscope ([id number]) was introduced through the anus and advanced to the cecum, identified by appendiceal orifice and ileocecal valve. Findings & Specimens: The terminal ileum appeared normal. A 2 mm polyp was found in the ascending colon. The polyp was sessile. The polyp was removed with a jumbo cold forceps. Resection and retrieval were complete. The pathology specimen was placed into Bottle Number 1. Three sessile polyps were found in the sigmoid colon. The polyps were 3 to 5 mm in size. These polyps were removed with a cold snare. Resection and retrieval were complete. The pathology specimen was placed into Bottle Number 2. Impression: - Preparation of the colon was fair. - The examined portion of the ileum was normal. - One 2 mm polyp in the ascending colon, removed with a jumbo cold forceps. Resected and retrieved. - Three 3 to 5 mm polyps in the sigmoid colon, removed with a cold snare. Resected and retrieved. Recommendation: - Repeat colonoscopy in 1 year for surveillance based on pathology results. - Return to referring physician as previously scheduled. - Patient has a contact number available for emergencies. The signs and symptoms of potential delayed complications were discussed with the patient. Return to normal activities tomorrow. Written discharge instructions were provided to the patient. Michael Lobato MD 05/21/2023 9:45:44 AM This report has been signed electronically. documented in this encounter Nursing Notes * Lolis Betancur RN - 05/21/2023 10:15 AM EDT Patient is alert, pain free, and tolerating po fluids prior to discharge. Patient has been visited by Dr. Lobato. Patient has received and demonstrates understanding of discharge instructions. Patient is transported via w/c to private auto accompanied by endo staff. * Lolis Betancur RN - 05/21/2023 9:41 AM EDT Patient transferred to pacu 2 status post colonoscopy. Patient awake. Denies pain and nausea. Respirations are even and unlabored on room air. Abdomen soft and non distended. Vital signs stable. Pt tolerating orange juice. * Ariel Seewll RN - 05/21/2023 9:40 AM EDT See anesthesia record for medication administered during procedure. Ariel Sewell RN Specimen(s) and location(s) verified with physician post procedure 9:40 AM Ariel Sewell RN Pre cleaning of scope at the bedside started by senior geotechnical engineer. No abdominal pressure given * Kera Christie RN - 05/21/2023 8:52 AM EDT The following pt discharge instructions reviewed with pt prior to prodedure: No driving today. No alcohol today. No signing of legal documents. Rest as much as possible today and can return to normal activities tomorrow. No operating any heavy equipment today. Diet as tolerated. Pt verbalized understanding. documented in this encounter Plan of Treatment Upcoming Encounters Date Type Specialty Care Team Description 10/14/2023 Office Visit Urology Eduardo Geiger MD [address] [place] [address] Pending Results Name Type Priority Associated Diagnoses Date /Time SURGICAL PATHOLOGY Pathology Routine History of colon polyps 05/21/2023 9:40 AM EDT Scheduled Orders Name Type Priority Associated Diagnoses Orde r Schedule SURGICAL PATHOLOGY Pathology Routine History of colon polyps Release Upon Ordering for 1 Occurrences starting 05/21/2023, 1 completed Scheduled Procedures Name Priority Associated Diagnoses Date/Ti me COLONOSCOPY FLEXIBLE PROXIMAL DIAGNOSTIC History of colon polyps 05/21/2023 9:17 AM EDT Health Maintenance Due Date Last Done Comments Hepatitis B (1 of 3 - 3-dose series) 1965 Zoster Vaccines (2 of 2) 06/15/2021 04/20/2021 HbA1c 04/17/2023 04/17/2022, 07/02, 04/21/2021, Additional history exists Depression Screening, Annual for Pts 12 and Over 11/12/2023 11/12/2022 COLONOSCOPY-ANNUAL AGES 18-100 05/21/2024 05/21/2023, 01/23/2018, 01/23/2018 Lipid Panel 04/17/2027 04/17/2022, 04/01, 06/01/2020, Additional history exists DTaP,Tdap,and Td Vaccines (4 - Td or Tdap) 04/20/2031 04/20/2021, 03/20/2011, 04/04/2009 MENINGOCOCCAL (MENACTRA/MENVEO) Aged Out 04/04/2009 No longer eligible based on patient's age to complete this topic Hepatitis C Screening Completed 04/17/2022 , 04/17/2022, 04/17/2022 Influenza Vaccine (FLU shot) Completed 09/10/2022, 08/29/2021, 09/06/2020, Additional history exists COVID-19 Vaccine Completed 10/10/2022, , 12/21/2020, Additional history exists COLONOSCOPY-EVERY 5 YRS AGES 18-100 Discontinued 05/21/2023, 01/23/2018, 01/23/2018 GARDASIL-HPV IMMUNIZATION SERIES Aged Out No longer [...] Procedure Name Priority Date/Time Associated Diagnosis Comments COLONOSCOPY 05/21/2023 8:28 AM EDT documented in this encounter Results * COLONOSCOPY (05/21/2023 8:28 AM EDT) 05/21/2023 8:28 AM EDT Procedure Note Ford Wise MD - 05/21/2023 8:28 AM EDT [facility] Patient Name: Justice Porras Procedure Date: 05/21/2023 8:28 AM Date of : 1965 Admit Type: Outpatient Note Status:Finalized Date of : 1965 Admit Type: Outpatient Age: 57 Room: Endo 3 Gender: Male Note Status: Finalized Procedure: Colonoscopy Indications: High risk colon cancer surveillance: Personalhistory of non- advanced adenoma Providers: Michael Lobato MD (Doctor) Referring MD: Ford Wise MD (Referring MD) Medicines: Propofol per Anesthesia Complications: No immediate complications. Estimated blood loss:None. Procedure: Pre-Anesthesia Assessment: - - Prior to the procedure, a History and Physicalwas performed, patient medications, allergies and sensitivities were reviewed. Thepatient's tolerance of previous anesthesia was reviewed. See [facility] for furtherdetails. - The risks, benefits, and alternatives of theprocedure including the sedation options and risks were discussed with the patient.All questions were answered and informed consent was obtained. - Patient identification and proposed procedurewere verified prior to the procedure by the physician and the nurse. The procedure wasverified in the procedure room. - See [facility] for documentation of the pre-procedureassessment including ASA status. - After I obtained informed consent, the scope wascarefully and meticulously passed under direct vision only when the lumen wasdefinitively identified. CO2 insufflation was utilized throughout the entire procedureexclusively. After I obtained informed consent, the scope waspassed under direct vision. All instruments were visually inspected immediatelybefore and after removal from the patient to ensure they are fully intact. Throughout the procedure, the patient's bloodpressure, pulse, and oxygen saturations were monitored continuously.The colonoscopy wasperformed without difficulty. The patient tolerated the procedure well. The qualityof the bowel preparation was fair. The [id number] Colonoscope ([id number]) was introducedthrough the anus and advanced to the cecum, identified by appendiceal orifice andileocecal valve. Findings & Specimens: The terminal ileum appeared normal. A 2 mm polyp was found in the ascending colon. The polyp was sessile.The polyp was removed with a jumbo cold forceps. Resection and retrieval were complete. Thepathology specimen was placed into Bottle Number 1. Three sessile polyps were found in the sigmoid colon. The polyps were3 to 5 mm in size. These polyps were removed with a cold snare. Resection and retrieval werecomplete. The pathology specimen was placed into Bottle Number 2. Impression: - Preparation of the colon was fair. - The examined portion of the ileum was normal. - One 2 mm polyp in the ascending colon, removedwith a jumbo cold forceps. Resected and retrieved. - Three 3 to 5 mm polyps in the sigmoid colon,removed with a cold snare. Resected and retrieved. Recommendation: - Repeat colonoscopy in 1 year for surveillancebased on pathology results. - Return to referring physician as previouslyscheduled. - [facility] The signs and symptoms of potential delayed complications were discussed withthe patient. Return to normal activities tomorrow. Written discharge instructionswere provided to the patient. Michael Lobato MD 05/21/2023 9:45:44 AM This report has been signed electronically. Ford Wise MD GASTRO [facility] documented in this encounter Visit Diagnoses Diagnosis History of colon polyps Personal history of colonic polyps documented in this encounter Administered Medications Inactive Administered Medications - up to 3 most recent administrations Medication Order MAR Action Action Date Dose Rate Site isolyte-S pH 7.4 infusion Intravenous, Plasma-LYTE 148, isolyte-S, and isolyte-S pH 7.4 are considered equivalent - including for MAR barcode scanning., CONTINUOUS, Starting on Fri05/21/23 at 0900, Until Fri05/21/23 at 1416, Pre-Op Restarted 05/21/2023 9:39 AM EDT Continue from Pre-Op 05/21/2023 9:14 AM EDT 100 mL/hr New Bag 05/21/2023 8:45 AM EDT 1,000 mL 100 mL/hr documented in this encounter Active and Recently Administered Medications Times are shown in EDT. Continuous Medication Order 05/19/2023 05/20/2023 05/21/2023 isolyte-S pH 7.4 infusion Intravenous, Plasma-LYTE 148, isolyte-S, and isolyte-S pH 7.4 are considered equivalent - including for MAR barcode scanning., CONTINUOUS, Starting on Fri05/21/23 at 0900, Until Fri05/21/23 at 1416, Pre-Op 0845 (New Bag - Prov ider: Kera Christie RN)0914 (Continue from Pre-Op - Provider: Maren Minor CRNA)0938 (Paused - Provider: Maren Minor CRNA - Comment: Switch to gravity)0939 (Restarted - Provider: Maren Minor CRNA) documented in this encounter Care Teams Senior Storage Engineer Relationship Specialty Start Date End Date Ford Wise MD [address] [place] [address] PCP - General Internal Medicine 04/19/22 documented as of this encounter
--- OUTSIDE RECORDS SUMMARY | 2023-11-10 11:03 | External Medical Summary | Summary of Care ---
Author Name Unknown Organization [facility] Address [address] [place] [address] Phone [phone] Care Team Providers Care Mica Splitter Name Role Phone Ford Wise MD Primary Care Provider + Reason for Visit * Reason Comments Outpatient Testing Encounter Details Date Type Department Care Team Description 08/16/2023 Laboratory Laboratory, [facility] [address] [facility] [place] [id number] [facility] [address] [place] [address] Prediabetes; Mixed hyperlipidemia Allergies No known active allergiesdocumented as of this encounter (statuses as of 08/16/2023) Medications Medication Sig Dispensed Refills Start Date [...] as of this encounter (statuses as of 08/16/2023) Active Problems Problem Noted Date Mixed hyperlipidemia 04/15/2022 Fatty liver 04/15/2022 Erectile dysfunction 07/10/2021 Dysmetabolic syndrome X 07/10/2021 Prediabetes 01/13/2018 Overview: Per Prediabetes protocol #1 Vitamin D deficiency 05/15/2017 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 Calculus of ureter 06/18/2005 Other acne 06/18/2005 documented as of this encounter (statuses as of 08/16/2023) Resolved Problems Problem Noted Date Resolved Date Dyslipidemia, goal LDL below 160 2008 04/15/2022 Malaise and fatigue 10/14/2008 03/10/2013 Disease of pituitary gland 10/14/200803/10 documented as of this encounter (statuses as of 08/16/2023) Immunizations Name Administration Dates Next Due COVID-19 mRNA, LNP-s, No Pre serve, 2-Dose Series ([employer]) 11/16/2021,12/21/2020,11/30/2020 Covid-19, Mrna, Lnp-s, Pf, B ivalent, [...] on file documented as of this encounter Plan of Treatment Upcoming Encounters Date Type Specialty Care Team Description 08/18/2023 Imaging Radiology 08/18/2023 Office Visit Otolaryngology Grant Beasley DO [address] [place] [address] 10/14/2023 Office Visit Urology Eduardo Geiger MD [address] [place] [address] 03/29/2024 Office Visit Internal Medicine Ford Wise MD [address] [place] [address] Pending Results Name Type Priority Associated Diagnoses Date /Time HEMOGLOBIN A1C Lab Routine Prediabetes 08/16/2023 11:17 AM EDT COMPREHENSIVE METABOLIC PANEL Lab Routine Mixed hyperlipidemia 08/16/2023 11:17 AM EDT LIPID PANEL WITH DIRECT LDL IF TG IS HIGH Lab Routine Mixed hyperlipidemia 08/16/2023 11:17 AM EDT Scheduled Procedures Name Priority Associated Diagnoses Date/Ti [...] as of this encounter Visit Diagnoses Diagnosis Prediabetes Other abnormal glucose Mixed hyperlipidemia documented in this encounter Care Teams Mica Splitter Relationship Specialty Start Date End Date Ford Wise MD [address] [place] [address], [place] [address] PCP - General Internal Medicine 04/19/22 documented as of this encounter
--- OUTSIDE RECORDS SUMMARY | 2023-11-10 11:03 | External Medical Summary | Summary of Care ---
Author Name Unknown Organization [facility] [address] [place] [address] Phone [phone] Care Team Providers Care Panama Hat Blocker Name Role Phone Ford Wise MD Primary Care Provider + Reason for Visit * Reason Comments Procedure US guided Right Paro tid mass biopsy Encounter Details Date Type Department Care Team Description 08/01/2023 Hospital Encounter Radiology, [facility] [address] [place], [place] [id number] Arrived Allergies No known active allergiesdocumented as of this encounter (statuses as of 08/02/2023) Medications Medication Sig Dispensed Refills Start Date [...] as of this encounter (statuses as of 08/02/2023) Active Problems Problem Noted Date Mixed hyperlipidemia 04/15/2022 Fatty liver 04/15/2022 Erectile dysfunction 07/10/2021 Dysmetabolic syndrome X 07/10/2021 Prediabetes 01/13/2018 Overview: Per Prediabetes protocol #1 Vitamin D deficiency 05/15/2017 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 Calculus of ureter 06/18/2005 Other acne 06/18/2005 documented as of this encounter (statuses as of 08/02/2023) Resolved Problems Problem Noted Date Resolved Date Dyslipidemia, goal LDL below 160 2008 04/15/2022 Malaise and fatigue 10/14/2008 03/10/2013 Disease of pituitary gland 10/14/200803/10 documented as of this encounter (statuses as of 08/02/2023) Immunizations Name Administration Dates Next Due COVID-19 mRNA, LNP-s, No Pre serve, 2-Dose Series ([employer]) 11/16/2021,12/21/2020,11/30/2020 Covid-19, Mrna, Lnp-s, Pf, B ivalent, 30 Mcg, IM, 12 yrs and above ([employer]) 10/10/2022 HEP A - Hepatitis A (Adult [...] on file documented as of this encounter Nursing Notes * Leonor Santos RN - 08/01/2023 3:30 PM EDT Procedure: US Guided Right Parotid Gland Biopsy Pt placed on procedure table with comfort measures intact. Pt denies any current complaints. Informed consent obtained. Timeout performed by Dr. John Machado at 1624. Patient prepped for procedure. Skin around biopsy area cleaned with chloraprep and dried. 4 mL 1% buffered lidocaine administered locally to right parotid gland by . Access obtained and advanced under US guidance. 6 FNA biopsies obtained. Slides prepared and given to laboratory analyst who used telecytology method to verify adequacy of cellular material. Access removed. Pressure applied by MD. Bandaid applied to site. Post procedure image obtained. Patient tolerated procedure well without complications. documented in this encounter Plan of Treatment Upcoming Encounters Date Type Specialty Care Team Description 10/14/2023 Office Visit Urology Eduardo Geiger MD [address] [facility] [address] [place] [address] 03/29/2024 Office Visit Internal Medicine Ford Wise MD [address] [facility] [place] [id number] Scheduled Procedures Name Priority Associated Diagnoses Date/Ti [...] Procedure Name Priority Date/Time Associated Diagnosis Comments IR BIOPSY Routine 08/01/2023 4:48 PM EDT Parotid mass documented in this encounter Results * IR BIOPSY (08/01/2023 4:48 PM EDT) Anatomical Region Laterality Modality Any Ultrasound 08/01/2023 5:06 PM EDT Impressions 08/01/2023 5:04 PM EDT IMPRESSION: Successful ultrasound-guided percutaneous right parotid gland mass biopsy. PLAN: Ordering clinician to follow up results with the patient. Narrative 08/01/2023 5:04 PM EDT PROCEDURE: Ultrasound-guided percutaneous right parotid gland mass biopsy. INDICATION: 57-year-old male with a right parotid gland mass presenting for percutaneous biopsy. ATTENDING (OPERATING PHYSICIAN): DO BERT Champino RESIDENT (OPERATING PHYSICIAN): None SUPPORTING PROVIDER (TOOLING SPECIALIST): None. CONSENT: After a detailed discussion of the procedure, risks, benefits and alternative treatment options, informed consent was obtained. TIME OUT: A time out procedure was performed. The patient's identification was verified. Informed consent with agreement of procedure, site and position was obtained. All necessary equipment was available prior to procedure. CONTRAST: No contrast administered. COMPLICATIONS: None. ANESTHESIA: Local lidocaine. SEDATION TIME: N/A MEDICATIONS: See MAR PROCEDURE DESCRIPTION: After survey ultrasound images of the right parotid gland were performed, the mass was studied. Then the access site was selected and prepped and draped in the usual sterile fashion. The skin and deep soft tissues were anesthetized. Under ultrasound guidance, 4 fine needle aspiration samples were obtained using 25 gauge needles. Specimens were evaluated by the cytopathologist and placed in a vial of RPMI. The remote cytopathologist deemed the samples to be inadequate. Under ultrasound guidance, 2 additional fine needle aspiration samples were obtained using 25 gauge needles and placed in a vial of RPMI. All specimen samples were given to the oil laboratory analyst. Hemostasis was achieved and the site was dressed. The patient tolerated the procedure well. I personally performed the procedure. FINDINGS: Limited survey ultrasound demonstrates a heterogenous right parotid gland mass, similar to recent imaging. Further imaging shows the aspiration needles within the target. No immediate complication on post biopsy imaging. Procedure Note John Machado, - 08/01/2023 PROCEDURE: Ultrasound-guided percutaneous right parotid gland mass biopsy. INDICATION: 57-year-old male with a right parotid gland mass presentingfor percutaneous biopsy. ATTENDING (OPERATING PHYSICIAN): DO BERT Champion RESIDENT (OPERATING PHYSICIAN): None SUPPORTING PROVIDER (TOOLING SPECIALIST): None. CONSENT: After a detailed discussion of the procedure, risks, benefits andalternative treatment options, informed consent was obtained. TIME OUT: A time out procedure was performed. The patient's identificationwas verified. Informed consent with agreement of procedure, site andposition was obtained. All necessary equipment was available prior toprocedure. CONTRAST: No contrast administered. COMPLICATIONS: None. ANESTHESIA: Local lidocaine. SEDATION TIME: N/A MEDICATIONS: See MAR PROCEDURE DESCRIPTION: After survey ultrasound images of the right parotidgland were performed, the mass was studied. Then the access site wasselected and prepped and draped in the usual sterile fashion. The skin anddeep soft tissues were anesthetized. Under ultrasound guidance, 4 fineneedle aspiration samples were obtained using 25 gauge needles. Specimenswere evaluated by the cytopathologist and placed in a vial of RPMI. Theremote cytopathologist deemed the samples to be inadequate. Underultrasound guidance, 2 additional fine needle aspiration samples wereobtained using 25 gauge needles and placed in a vial of RPMI. Allspecimen samples were given to the oil laboratory analyst. Hemostasiswas achieved and the site was dressed. The patient tolerated the procedurewell. I personally performed the procedure. FINDINGS: Limited survey ultrasound demonstrates a heterogenous right parotid glandmass, similar to recent imaging. Further imaging shows the aspiration needles within the target. Noimmediate complication on post biopsy imaging. IMPRESSION IMPRESSION: Successful ultrasound-guided percutaneous right parotid gland massbiopsy. PLAN: Ordering clinician to follow up results with the patient. Tod Bates PA-C RAD SPECIAL PROCED URES documented in this encounter Care Teams Panama Hat Blocker Relationship Specialty Start Date End Date Ford Wise MD [address] [facility] [place], [place] [id number] PCP - General Internal Medicine 04/19/22 documented as of this encounter
--- OUTSIDE RECORDS SUMMARY | 2023-11-10 11:03 | External Medical Summary ---
Author Name Unknown Address Unknown Organization [id number]:[facility] [place] - [address] [facility] [address] Laboratory Report Ordering Provider Test Date Status FARTUN BARRIENTOS 08/16/2023 11:17:10 Final Observation Date Value Abnormality Reference (Units ) Status Triglyceride 08/16/2023 11:17:10 95 <=174 ( mg/dL) Final Triglyceride Reference Range s (mg/dL):
<150 Acceptable
150-174 Borderline high
175-499 High
>=500 Very high Cholesterol 08/16/2023 11:17:10 145 <200 (mg /dL) Final Total Cholesterol Reference Ranges (mg/dL):
<200 Desirable
200-239 Borderline high
>=240 High HDL 08/16/2023 11:17:10 36 Below low normal >39 (mg/dL) Final HDL Cholesterol Reference Ra nges (mg/dL):
>=60 High (Desirable)
<50 Low (Undesirable) For Females
<40 Low (Undesirable) For Males NON-HDL CHOLESTEROL 08/16/2023 11:17:10 109 <=159 (mg/dL) Final Non-HDL Cholesterol Referenc e Range (mg/dL):
<100 Target level for high risk ASCVD patient
<130 Optimal for general population
130-159 Near optimal for general population
160-189 Borderline High
190-219 High
>=220 Very High LDL, (calculated) 08/16/2023 11:17:10 90 <= 129 (mg/dL) Final LDL Cholesterol Reference Ra nges (mg/dL):
<70 Target level for high risk ASCVD patient
<100 Optimal for general population
100-129 Near optimal for general population
130-159 Borderline high
160-189 High
>=190 Very high Performing Location [facility] [place] - [address] [facility] [address]
--- OUTSIDE RECORDS SUMMARY | 2023-11-10 11:03 | External Medical Summary | Summary of Care ---
Author Name Unknown Organization [facility] Address [address] [place] [address] Phone [phone] Care Team Providers Care Security Representative Name Role Phone Ford Wise MD Primary Care Provider + Reason for Visit * Reason Onset Date Comments Referral 08/08/2023 Encounter Details Date Type Department Care Team Description 08/08/2023 Telephone General Internal Medicine [facility] [address] [place] [address] Tod Bates PA-C [address] [place] [address] Referral Allergies No known active allergiesdocumented as of this encounter (statuses as of 08/12/2023) Medications Medication Sig Dispensed Refills Start Date [...] as of this encounter (statuses as of 08/12/2023) Active Problems Problem Noted Date Mixed hyperlipidemia 04/15/2022 Fatty liver 04/15/2022 Erectile dysfunction 07/10/2021 Dysmetabolic syndrome X 07/10/2021 Prediabetes 01/13/2018 Overview: Per Prediabetes protocol #1 Vitamin D deficiency 05/15/2017 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 Calculus of ureter 06/18/2005 Other acne 06/18/2005 documented as of this encounter (statuses as of 08/12/2023) Resolved Problems Problem Noted Date Resolved Date Dyslipidemia, goal LDL below 160 2008 04/15/2022 Malaise and fatigue 10/14/2008 03/10/2013 Disease of pituitary gland 10/14/200803/10 documented as of this encounter (statuses as of 08/12/2023) Immunizations Name Administration Dates Next Due COVID-19 [...] Miscellaneous Notes * Telephone Encounter - ANUJ Kwon - 08/12/2023 12:04 PM EDT HAMIDA full, MyG message sent, letter sent. 08/12 JAT * Telephone Encounter - ANUJ Kwon - 08/08/2023 2:18 PM EDT Called pt, HAMIDA full 08/08 JAT documented in this encounter Plan of Treatment Upcoming Encounters Date Type Specialty Care Team Description 08/18/2023 Office Visit Otolaryngology Grant Beasley DO [address] [place] [address] 10/14/2023 Office Visit Urology Eduardo Geiger MD [address] [place] [address] [place] [address] 03/29/2024 Office Visit [facility] [phone] Scheduled Procedures Name Priority Associated Diagnoses Date/Ti [...] filedocumented as of this encounter Care Teams Security Representative Relationship Specialty Start Date End Date Ford Wise MD [address] [place] [address], [place] [address] PCP - General Internal Medicine 04/19/22 documented as of this encounter
--- OUTSIDE RECORDS SUMMARY | 2023-11-10 11:03 | External Medical Summary ---
Author Name Unknown Address Unknown Organization [id number]:[facility] - [address] [place] [address] Laboratory Report Ordering Provider Test Date Status FARTUN BARRIENTOS 08/16/2023 11:17:10 Final Observation Date Value Abnormality Reference (Units ) Status BUN 08/16/2023 11:17:10 12 6-20 (mg/dL) Final Creatinine 08/16/2023 11:17:10 0.9 0.6-1.2 (mg/dL) Final Glomerular filtration rate/1.73 sq M.predicted [Volume Rate/Area] in Serum, Plasma or Blood by Creatinine-based formula (CKD-EPI) 08/16/2023 11:17:10 >90 >=60 (mL/min) Final eGFR is calculated based on the CKD-EPI 2020 equation SODIUM 08/16/2023 11:17:10 141 135-146 (m mol/L) Final Potassium 08/16/2023 11:17:10 4.2 3.5-5.1 (m mol/L) Final Cl 08/16/2023 11:17:10 106 98-107 (mm ol/L) Final CO2 08/16/2023 11:17:10 24 22-32 (mmo l/L) Final Anion gap 08/16/2023 11:17:10 11 7-15 (mmol /L) Final Glucose 08/16/2023 11:17:10 106 70-120 (mg /dL) Final Albumin 08/16/2023 11:17:10 4.3 3.8-5.0 (g /dL) Final AST (Aspartate aminotransferase) 08/16/2023 11:17:10 30 10-50 (U/L) Fin al Alk Phos 08/16/2023 11:17:10 94 35-130 (U/ L) Final Bilirubin, Total 08/16/2023 11:17:10 0.9 <=1 .2 (mg/dL) Final Calcium 08/16/2023 11:17:10 9.0 8.4-10.2 ( mg/dL) Final Protein 08/16/2023 11:17:10 6.9 6.0-8.3 (g /dL) Final ALT (Alanine aminotransferase) 08/16/2023 11:17:10 79 Above high normal 10-50 (U/L) Final Performing Location [facility] - [address] [facility] [address]
--- OUTSIDE RECORDS SUMMARY | 2023-11-10 11:03 | External Medical Summary | Summary of Care ---
Author Name Unknown Organization [facility] Address [address] [place] [address] Phone [phone] Care Team Providers Care Medical Laboratory Assistant Name Role Phone Ford Wise MD Primary Care Provider + Reason for Visit * Reason Comments Other R side cheek/jaw swe lling, slightly decreased x's 5 days. Ultrasound already done. Encounter Details Date Type Department Care Team Description 07/28/2023 Office Visit General Internal Medicine [facility] [address] [place] [address] Iliana Willoughby PA-C [address] [place] [address] Parotid mass*; Mixed hyperlipidemia; Prediabetes; Elevated ALT measurement Allergies No known active allergiesdocumented as of [...] mRNA, LNP-s, No Pre serve, 2-Dose Series ([employer]) 11/16/2021,12/21/2020,11/30/2020 Covid-19, Mrna, Lnp-s, Pf, B ivalent, [...] documented in this encounter Progress Notes * Iliana Willoughby PA-C - 07/28/2023 12:35 PM EDT Images [...] 2 m US HEAD AND NECK Order: [id number] Status: Final result Visible to patient: Yes (seen) Next appt: 10/14/2023 at 04:15 PM in *[facility]* (Eduardo Geiger MD) Dx: Lump in neck 1 Result Note Details Reading Physician Reading Date Result Priority Ford Xiao MD [phone] 07/24/2023 Kolby RainesjosefinamacarioDO [phone] 07/24/2023 Narrative & Impression EXAM US HEAD [...] if symptoms worsen or fail to improve. Iliana Willoughby PA-C documented in this encounter Nursing Notes * Cayla Pham LPN - 07/28/2023 12:33 PM EDT Chief Complaint Patient presents with Other R side cheek/jaw swelling, slightly decreased x's 5 days. Ultrasound already done. documented in this encounter Miscellaneous Notes * Addendum Note - Iliana Willoughby PA-C - 08/18/2023 7:51 AM EDTAddended by: ILIANA WILLOUGHBY on: 08/18/2023 07:51 AM Modules accepted: Orders * Result Encounter Note - Iliana Willoughby PA-C - 08/05/2023 8:12 AM EDT Await pathology documented in this encounter Plan of Treatment Upcoming Encounters Date Type Specialty Care Team Description 08/18/2023 Imaging Radiology 08/18/2023 Office Visit Otolaryngology Grant Beasley DO [address] [place] [address] 10/14/2023 Office Visit Urology Eduardo Geiger MD [address] [place] [address] [place] [id number] 03/29/2024 Office Visit Internal Medicine Ford Wise MD [address] [place], [place] [phone] Scheduled Orders Name Type Priority Associated Diagnoses Orde r Schedule HEPATIC FUNCTION PANEL Lab Routine Elevated ALT measurement Expected: 11/17/2023 (Approximate), Expires: 08/17/2024 Scheduled Procedures Name Priority Associated Diagnoses Date/Ti [...] Routine 08/01/2023 4:48 PM EDT Parotid mass CYTOLOGY Routine 08/01/2023 4:30 PM EDT Parotid mass documented in this encounter Results * (ABNORMAL) LIPID PANEL WITH DIRECT LDL IF TG IS HIGH (08/16/2023 11:17 AM EDT) Triglycerides 95 <=174 mg/dL 08/16/2023 9:06 PM EDT [facility] [place]: Triglyceride Reference Ranges (mg/dL): <150 Acceptable 150-174 Borderline high 175-499 High >=500 Very high Cholesterol 145 <200 mg/dL 08/16/2023 9:06 PM EDT [facility] [place]: Total Cholesterol Reference Ranges (mg/dL): <200 Desirable 200-239 Borderline high >=240 High HDL Cholesterol 36(L) >39 mg/dL 9:06 PM EDT [facility] [place]: HDL Cholesterol Reference Ranges (mg/dL): >=60 High (Desirable) <50 Low (Undesirable) For Females <40 Low (Undesirable) For Males Non-HDL Cholesterol 109 <=159 mg/dL 08/16/2023 9:06 PM EDT [facility] [place]: Non-HDL Cholesterol Reference Range (mg/dL): <100 Target level for high risk ASCVD patient <130 Optimal for general population 130-159 Near optimal for general population 160-189 Borderline High 190-219 High >=220 Very High LDL Cholesterol 90 <=129 mg/dL 08/16/2023 9:06 PM EDT [facility] Comment: LDL Cholesterol Reference Ranges (mg/dL): <70 Target level for high risk ASCVD patient <100 Optimal for general population 100-129 Near optimal for general population 130-159 Borderline high 160-189 High >=190 Very high Blood Venous blood specimen / Unknown Venipuncture / Unknown 08/16/2023 11:17 AM EDT 08/16/2023 11:17 AM EDT Iliana Willoughby PA-C LAB BLOOD ORDERABL ES [facility] [address] [place] [address] * (ABNORMAL) COMPREHENSIVE METABOLIC PANEL (08/16/2023 11:17 AM EDT) BUN 12 6 - 20 mg/dL 08/16/2023 12:17 PM EDT [facility] Creatinine 0.9 0.6 - 1.2 mg/dL 08/16/2023 12:17 PM EDT [facility] Estimated Glomerular Filtration Rate >90 >=60 mL/min 08/16/2023 12:17 PM EDT [facility] Comment:eGFR is calculated b ased on the CKD-EPI 2020 equation Sodium 141 135 - 146 mmol/L 08/16/2023 12:17 PM EDT [facility] Potassium 4.2 3.5 - 5.1 mmol/L 08/16/2023 12:17 PM EDT [facility] Chloride 106 98 - 107 mmol/L 08/16/2023 12:17 PM EDT [facility] CO2 24 22 - 32 mmol/L 08/16/2023 12:17 PM EDT [facility] Anion Gap 11 7 - 15 mmol/L 08/16/2023 12:17 PM EDT [facility] Glucose 106 70 - 120 mg/dL 08/16/2023 12:17 PM EDT [facility] Albumin 4.3 3.8 - 5.0 g/dL 08/16/2023 12:17 PM EDT [facility] AST 30 10 - 50 U/L 08/16/2023 12:17 PM EDT [facility] Alkaline Phosphatase 94 35 - 130 U/L 08/16/2023 12:17 PM EDT [facility] Bilirubin, Total 0.9 <=1.2 mg/dL 08/16/2023 12:17 PM EDT [facility] Calcium 9.0 8.4 - 10.2 mg/dL 08/16/2023 12:17 PM EDT [facility] Protein 6.9 6.0 - 8.3 g/dL 08/16/2023 12:17 PM EDT [facility] ALT 79(H) 10 - 50 U/L 08/16/2023 12:17 PM EDT [facility] Blood Venous blood specimen / Unknown Venipuncture / Unknown 08/16/2023 11:17 AM EDT 08/16/2023 11:17 AM EDT Iliana Willoughby PA-C LAB BLOOD ORDERABL ES [facility] [address] [place] [address] * (ABNORMAL) HEMOGLOBIN A1C (08/16/2023 11:17 AM EDT) Hemoglobin A1C 6.1(H) 4.0 - 5.6 % 08/16/2023 9:11 PM EDT [facility] Comment:The use of HbA1c to monitor glycemic status is based on normal hemoglobin and HbA composition. This test should not be used in patients with abnormal hemoglobin that affects the half life of the red blood cell or the in vivo glycation rates. Estimated Average Glucose 128(H) <126 mg/dL 08/16/2023 9:11 PM EDT [facility] Blood Venous blood specimen / Unknown Venipuncture / Unknown 08/16/2023 11:17 AM EDT 08/16/2023 11:17 AM EDT Iliana Willoughby PA-C LAB BLOOD ORDERABL ES [facility] [address] [place] [address] * IR BIOPSY (08/01/2023 4:48 PM EDT) [...] Champion RESIDENT (OPERATING PHYSICIAN): None SUPPORTING PROVIDER (REFERRAL NURSE): None. CONSENT: After a detailed discussion of [...] Local lidocaine. SEDATION TIME: N/A MEDICATIONS: See [facility] PROCEDURE DESCRIPTION: After survey ultrasound images of [...] All specimen samples were given to the chemical laboratory tester. Hemostasis was achieved and the site was dressed. The patient tolerated the procedure well. I personally performed the procedure. FINDINGS: Limited survey ultrasound demonstrates a heterogenous right parotid gland mass, similar to recent imaging. Further imaging shows the aspiration needles within the target. No immediate complication on post biopsy imaging. Procedure Note John Machado DO - 08/01/2023 PROCEDURE: Ultrasound-guided percutaneous right parotid gland mass biopsy. INDICATION: 57-year-old male with a right parotid gland mass presentingfor percutaneous biopsy. ATTENDING (OPERATING PHYSICIAN): John Machado DO SCRUBBED RESIDENT (OPERATING PHYSICIAN): None SUPPORTING PROVIDER (REFERRAL NURSE): None. CONSENT: After a detailed discussion of the procedure, risks, benefits andalternative treatment options, informed consent was obtained. TIME OUT: A time out procedure was performed. The patient's identificationwas verified. Informed consent with agreement of procedure, site andposition was obtained. All necessary equipment was available prior toprocedure. CONTRAST: No contrast administered. COMPLICATIONS: None. ANESTHESIA: Local lidocaine. SEDATION TIME: N/A MEDICATIONS: See [facility] PROCEDURE DESCRIPTION: After survey ultrasound images of [...] RPMI. Allspecimen samples were given to the chemical laboratory tester. Hemostasiswas achieved and the site was dressed. [...] to follow up results with the patient. Iliana Willoughby PA-C RAD SPECIAL PROCED URES * CYTOLOGY (08/01/2023 4:30 PM EDT) Final Diagnosis A. Parotid Gland, Right, CT/US guided Fine Needle Aspiration: Adequacy: Satisfactory for evaluation. Category: Neoplasm: Favor benign (Camden classification). Interpretation: Favor Warthin tumor (see comment) Other: Cellblock: The histological sections of the cellblock preparation show similar findings. Comment: On the direct smears there are oncocytic cells in the background of lymphocytes and debris. Cellblock reveals rare epithelial cells which nearly disappeared at deeper levels. The luminal epithelial cells are positive for CK7; basal cuboidal cells are positive for P40, P63. P16 is patchy positive. The immunophenotype and morphology are compatible with above diagnosis. 3 8:42 AM EDT LABORATORY C Prior Cancer None 3 8:42 AM EDT LABORATORY C Indication for Procedure right parotid mass 3 8:42 AM EDT LABORATORY C Gross Description A. Parotid Gland, Right. Received are 2 air dried and 2 fixed slides and specimen in RPMI labeled with name: Justice Porras MD and parotid gland, right and verified with the patient's name and date of . Specimen sent for cell block. The slides are stained and specimen is prepared for cell block at [facility]. The cell block is submitted in cassette A1 and processed at [facility]. Prepared by: Formalin fixation time: greater than 72 hours 3 8:42 AM EDT [facility] Intraprocedural Assessment A. Parotid Gland, Right. Collecting Physician: Dr. Machado Type of Assessment: Immediate evaluation by pathologist and Telecytology used Onsite Personnel: Yarely Dye Time: 4:35pm Source: Parotid Gland, Right Part: [id number] Pass(es): 1,2 Adequacy: Not adequate Preliminary: Non-Diagnostic Additional passes for block: Additional tube for molecular/Flow: No Reason for terminating procedure: Procedure endpoint (reasonable number of passes made) Additional Information: End Time: 4:40pm Intraprocedural assessment performed by: Evelin Sinclair MD Specimen sent for: Specimen sent for cell block 3 8:42 AM EDT [facility] Performing Labs Chemical Research Engineer screening performed at [facility] ([facility] [address] [place] [phone]. Pathologist sign out performed at [facility] ([facility] [address] [place] [id number]. 3 8:42 AM EDT [facility] Photographic images and diagrams represent zayas findings in this case; they are not intended to replace a complete review of the final diagnostic report. The following statement applies to Flow Cytometry, Histology, In situ Hybridization Assays and Molecular Genetics. This test was developed and performed at [facility] and its performance characteristics determined by [facility] [employer]. It has not been cleared or approved by the U.S. Food and Drug Administration. The FDA has determined that such clearance or approval is not necessary. This test is used for clinical purposes. It should not be regarded as investigational or for research. Special stains, including histochemical stains, and studies using immunologic and DO methodology (where applicable) are performed with appropriate positive and negative control reactions. 3 8:42 AM EDT [facility] Aspirate (Parotid Gland, Right) 08/01/2023 4:30 PM EDT 08/01/2023 4:56 PM EDT Iliana Willoughby PA-C LAB CYTOLOGY [facility] [place] [id number] documented in this encounter Visit Diagnoses Diagnosis Parotid mass- Primary Swelling, mass, or lump in head and neck Mixed hyperlipidemia Prediabetes Other abnormal glucose Elevated ALT measurement Nonspecific elevation of levels of transaminase or lactic acid dehydrogenase (LDH) Parotid mass [K11.8 (ICD-10-CM)]- Primary Swelling, mass, or lump in head and neck documented in this encounter Care Teams Medical Laboratory Assistant Relationship Specialty Start Date End Date Ford Wise MD [address] [place] [id number] PCP - General Internal Medicine 04/19/22 documented as of this encounter
--- OUTSIDE RECORDS SUMMARY | 2023-11-10 11:03 | External Medical Summary | Summary of Care ---
Author Name Unknown Organization [facility] Address [address] [place] [address] Phone [phone] Care Team Providers Care Sanitation Worker Cleaning Machinery Name Role Phone Ford Wise MD Primary Care Provider + Reason for Visit * Reason Onset Date Comments Appointment 07/21/2023 Lower Back Pain Encounter Details Date Type Department Care Team Description 07/21/2023 Telephone General Internal Medicine [facility] [address] [facility] [place] [address] Ford Wise MD [address] [place] [address] Appointment (Lower Back Pain ) Allergies No known active allergiesdocumented as of this encounter (statuses as of 07/21/2023) Medications Medication Sig Dispensed Refills Start Date [...] Additional Information Patient not taking.Reported on 04/22/2023 Terbinafine HCl 250 MG Oral Tablet (Lamisil)Indicatio ns:Onychomycosis TAKE 1 TABLET BY MOUTH EVERY MORNING FOR 12 WEEKS FOR TOENAIL FUNGUS 84 Tablet 1 01/20/2023 Active Additional Information Patient not taking.Reported on 05/19/2023 Atorvastatin Calcium 10 MG Oral Tablet (Lipitor)Indicatio ns:Dyslipidemia, goal LDL below 160 TAKE ONE TABLET BY MOUTH EVERY DAY 90 Tablet 1 02/14/2023 02/14/2024 Active Hydrocort-Pramoxin e (Perianal) 2.5-1 % External Cream APPLY TO RECTUM DAILY FOR TWO TO FOUR WEEKS 30 g 3 12/24/2022 12/24/2023 Active Additional Information Patient not taking.Reported on 04/22/2023 documented as of this encounter (statuses as of 07/21/2023) Active Problems Problem Noted Date Mixed hyperlipidemia 04/15/2022 Fatty liver 04/15/2022 Erectile dysfunction 07/10/2021 Dysmetabolic syndrome X 07/10/2021 Prediabetes 01/13/2018 Overview: Per Prediabetes protocol #1 Vitamin D deficiency 05/15/2017 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 Calculus of ureter 06/18/2005 Other acne 06/18/2005 documented as of this encounter (statuses as of 07/21/2023) Resolved Problems Problem Noted Date Resolved Date Dyslipidemia, goal LDL below 160 2008 04/15/2022 Malaise and fatigue 10/14/2008 03/10/2013 Disease of pituitary gland 10/14/200803/10 documented as of this encounter (statuses as of 07/21/2023) Immunizations Name Administration Dates Next Due COVID-19 mRNA, LNP-s, No Pre serve, 2-Dose Series ([employer]) 11/16/2021,12/21/2020,11/30/2020 Covid-19, Mrna, Lnp-s, Pf, B ivalent, [...] * Telephone Encounter - ANUJ Kwon - 07/21/2023 1:19 PM EDT Called ptcheryl appt with Tod on 07/28 07/21 JAT * Telephone Encounter - ANUJ Moore - 07/21/2023 10:01 AM EDT Please see call details Pt is requesting appointment with PCP only Patient declined appointment with other providers Patient is available this afternoon, tomorrow and Friday07/25/23 documented in this encounter Plan of Treatment Upcoming Encounters Date Type Specialty Care Team Description 07/28/2023 Office Visit Internal Medicine Tod Bates PA-C [address] [place], [place] [phone] 10/14/2023 Office Visit Urology Eduardo Geiger MD [address] [place] [address] [place] [address] Scheduled Procedures Name Priority Associated Diagnoses Date/Ti [...] filedocumented as of this encounter Care Teams Sanitation Worker Cleaning Machinery Relationship Specialty Start Date End Date Ford Wise MD [address] [place] [address] PCP - General Internal Medicine 04/19/22 documented as of this encounter
--- OUTSIDE RECORDS SUMMARY | 2023-11-10 11:03 | External Medical Summary | Summary of Care ---
Author Name Unknown Organization [facility] Address [address] [place] [address] Phone [phone] Care Team Providers Care Bead Trimmer Name Role Phone Ford Wise MD Primary Care Provider + Reason for Referral * (Within 10 days (routine)) - Authorized Specialty Diagnoses / Procedures Referred By Lucie sorto Referred To Contact Radiology Diagnoses Lump in neck Procedures HEAD AND NECK Ford Wise MD [address] [place] [address] Referral ID Status Reason Start Date Expiration Date V isits Requested Visits Authorized [id number] Authorized 07/24/2023 999 999 Reason for Visit * (Within 10 days (routine)) - Authorized Specialty Diagnoses / Procedures Referred By Lucie sorto Referred To Contact Radiology Diagnoses Lump in neck Procedures HEAD AND NECK Ford Wise MD [address] [place] [address] Referral ID Status Reason Start Date Expiration Date V isits Requested Visits Authorized [id number] Authorized 07/24/2023 999 999 Encounter Details Date Type Department Care Team Description 07/24/2023 Hospital Encounter Radiology, [facility] [address] [place] [address] Arrived Allergies No known active allergiesdocumented as of this encounter (statuses as of 07/25/2023) Medications Medication Sig Dispensed Refills Start Date [...] as of this encounter (statuses as of 07/25/2023) Active Problems Problem Noted Date Mixed hyperlipidemia 04/15/2022 Fatty liver 04/15/2022 Erectile dysfunction 07/10/2021 Dysmetabolic syndrome X 07/10/2021 Prediabetes 01/13/2018 Overview: Per Prediabetes protocol #1 Vitamin D deficiency 05/15/2017 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 Calculus of ureter 06/18/2005 Other acne 06/18/2005 documented as of this encounter (statuses as of 07/25/2023) Resolved Problems Problem Noted Date Resolved Date Dyslipidemia, goal LDL below 160 2008 04/15/2022 Malaise and fatigue 10/14/2008 03/10/2013 Disease of pituitary gland 10/14/200803/10 documented as of this encounter (statuses as of 07/25/2023) Immunizations Name Administration Dates Next Due COVID-19 mRNA, LNP-s, No Pre serve, 2-Dose Series ([employer] 11/16/2021,12/21/2020,11/30/2020 Covid-19, Mrna, Lnp-s, Pf, B ivalent, 30 Mcg, IM, 12 yrs and above ([employer] 10/10/2022 HEP A - Hepatitis A (Adult [...] Visit Internal Medicine Tod Bates PA-C [address] [place] [address] 10/14/2023 Office Visit Urology Eduardo Geiger MD [address] [place] [address] [place] [address] Scheduled Procedures Name Priority Associated Diagnoses [...] Procedure Name Priority Date/Time Associated Diagnosis Comments US HEAD AND NECK Routine 07/24/2023 2:31 PM EDT Lump in neck documented in this encounter Results * US HEAD AND NECK (07/24/2023 2:31 PM EDT) Anatomical Region Laterality Modality Neck, Head Ultrasound 07/24/2023 3:39 PM EDT Impressions 07/24/2023 10:33 PM EDT IMPRESSION Solid, hypoechoic right parotid mass. Recommend biopsy for further characterization. I have personally reviewed this examination and agree with the resident/fellow physician's interpretation. Narrative 07/24/2023 10:33 PM EDT EXAM US HEAD AND NECK-07/24/2023 2:31 pm HISTORY Right mandibular swelling COMPARISON None. TECHNIQUE Real-time ultrasonography of the parotid region in the region of palpable abnormality as directed by the patient. FINDINGS Solid, lobulated, hypoechoic parotid mass measuring 2.8 x 2.0 x 2.1 cm with internal cystic structures. Color flow is not demonstrated. Procedure Note Ford Xiao MD - 07/24/2023 EXAM US HEAD AND NECK-07/24/2023 2:31 pm HISTORY Right mandibular swelling COMPARISON None. TECHNIQUE Real-time ultrasonography of the parotid region in the region of palpableabnormality as directed by the patient. FINDINGS Solid, lobulated, hypoechoic parotid mass measuring 2.8 x 2.0 x 2.1 cmwith internal cystic structures. Color flow is not demonstrated. IMPRESSION IMPRESSION Solid, hypoechoic right parotid mass. Recommend biopsy for furthercharacterization. I have personally reviewed this examination and agree with the resident/fellow physician's interpretation. Ford Wise MD RAD ULTRASOUND documented in this encounter Visit Diagnoses Diagnosis Lump in neck Swelling, mass, or lump in head and neck documented in this encounter Care Teams Bead Trimmer Relationship Specialty Start Date End Date Ford Wise MD [address] [place] [address] PCP - General Internal Medicine 04/19/22 documented as of this encounter
--- OUTSIDE RECORDS SUMMARY | 2023-11-10 11:03 | External Medical Summary | Summary of Care ---
Author Name Unknown Organization [facility] [address] [place] [address] Phone [phone] Care Team Providers Care Frit Burner Name Role Phone Ford Wise MD Primary Care Provider + Reason for Visit * Reason Onset Date Comments Appointment 07/31/2023 Encounter Details Date Type Department Care Team Description 07/31/2023 Telephone Interventional Radiology, [facility] [address] [place], [place] [phone] Requisition, External Radiology [address] [place] [address] Appointment Allergies No known active allergiesdocumented as of this encounter (statuses as of 07/31/2023) Medications Medication Sig Dispensed Refills Start Date [...] as of this encounter (statuses as of 07/31/2023) Active Problems Problem Noted Date Mixed hyperlipidemia 04/15/2022 Fatty liver 04/15/2022 Erectile dysfunction 07/10/2021 Dysmetabolic syndrome X 07/10/2021 Prediabetes 01/13/2018 Overview: Per Prediabetes protocol #1 Vitamin D deficiency 05/15/2017 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 Calculus of ureter 06/18/2005 Other acne 06/18/2005 documented as of this encounter (statuses as of 07/31/2023) Resolved Problems Problem Noted Date Resolved Date Dyslipidemia, goal LDL below 160 2008 04/15/2022 Malaise and fatigue 10/14/2008 03/10/2013 Disease of pituitary gland 10/14/200803/10 documented as of this encounter (statuses as of 07/31/2023) Immunizations Name Administration Dates Next Due COVID-19 [...] Miscellaneous Notes * Telephone Encounter - ANUJ Sparks - 07/31/2023 8:24 AM EDT Spoke to patient to schedule parotid mass biopsy for 08/01 at 1530. Patient identified by: name/birthdate Person taught: Patient METHOD: Lecture-telephone interview Patient Preferred Learning Methods: Lecture-Telephone interview PATIENT INSTRUCTIONS GIVEN: - General Preoperative Instructions Reviewed - No food or fluid restrictions prior procedure -Location and check-in instructions Verbalizes understanding of education: Yes The Patient was given the opportunity to ask questions concerning the procedure. Signature: ANUJ Sparks 07/31/2023 documented in this encounter Plan of Treatment Upcoming Encounters Date Type Specialty Care Team Description 08/01/2023 Appointment Radiology 10/14/2023 Office Visit Urology Eduardo Geiger MD [address] [address] 03/29/2024 Office Visit Internal Medicine Ford Wise MD [address] [place] [address] Scheduled Procedures Name Priority Associated Diagnoses [...] filedocumented as of this encounter Care Teams Frit Burner Relationship Specialty Start Date End Date Ford Wise MD [address] [place] [address] [place] [address] PCP - General Internal Medicine 04/19/22 documented as of this encounter
--- OUTSIDE RECORDS SUMMARY | 2023-11-10 11:03 | External Medical Summary | Summary of Care ---
Author Name Unknown Organization [facility] Address [address] [place] [address] Phone [phone] Care Team Providers Care Iron Caster Name Role Phone Ford Wise MD Primary Care Provider + Reason for Visit * Reason Onset Date Comments Referral 08/08/2023 Encounter Details Date Type Department Care Team Description 08/08/2023 Telephone General Internal Medicine [facility] [address] [facility] [place] [address] Tod Bates PA-C [address] [facility] [place] [id number] Referral Allergies No known active allergiesdocumented as of this encounter (statuses as of 08/08/2023) Medications Medication Sig Dispensed Refills Start Date [...] as of this encounter (statuses as of 08/08/2023) Active Problems Problem Noted Date Mixed hyperlipidemia 04/15/2022 Fatty liver 04/15/2022 Erectile dysfunction 07/10/2021 Dysmetabolic syndrome X 07/10/2021 Prediabetes 01/13/2018 Overview: Per Prediabetes protocol #1 Vitamin D deficiency 05/15/2017 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 Calculus of ureter 06/18/2005 Other acne 06/18/2005 documented as of this encounter (statuses as of 08/08/2023) Resolved Problems Problem Noted Date Resolved Date Dyslipidemia, goal LDL below 160 2008 04/15/2022 Malaise and fatigue 10/14/2008 03/10/2013 Disease of pituitary gland 10/14/200803/10 documented as of this encounter (statuses as of 08/08/2023) Immunizations Name Administration Dates Next Due COVID-19 mRNA, LNP-s, No Pre serve, 2-Dose Series ([place]) 11/16/2021,12/21/2020,11/30/2020 Covid-19, Mrna, Lnp-s, Pf, B ivalent, [...] - 08/08/2023 2:18 PM EDT Called pt, VM full 08/08 JAT documented in this encounter Plan of Treatment Upcoming Encounters Date Type Specialty Care Team Description 10/14/2023 Office Visit Urology Eduardo Geiger MD [address] [place] [address] [place] [address] 03/29/2024 Office Visit Internal Medicine Ford Wise MD [address] [facility] [place] [address] Scheduled Procedures Name Priority Associated Diagnoses [...] filedocumented as of this encounter Care Teams Iron Caster Relationship Specialty Start Date End Date Ford Wise MD [address] [facility] [place] [address] PCP - General Internal Medicine 04/19/22 documented as of this encounter
--- NOTE | 2023-11-10 11:38 | Ultrasound Report ---
CAROTID ARTERY ULTRASOUND CLINICAL HISTORY: tia? syncope COMPARISON STUDY: None. TECHNIQUE: Real-time, grayscale, and color Doppler sonography of the carotid and vertebral arteries w as performed. Images were viewed in the transverse and longitudinal planes. FINDINGS: There is minimal intimal thickening. Velocity measurements are listed below. COMMON CAROTID PEAK SYSTOLIC VELOCITY (CM/S): RIGHT 87 LEFT 72 ICA PEAK SYSTOLIC VELOCITY (CM/S): RIGHT 60 LEFT 75 Systolic ratios between the internal to common carotid arteries were normal. Antegrade flow is seen in the vertebral arteries. The external carotid arteries are patent. IMPRESSION: Unremarkable carotid ultrasound. No evidence for a hemodynamically significant stenosis. ACT 112: Negative or not required by law. Electronically signed by: Kana Shirley M.D. 11/10/2023 11:36 AM
--- NOTE | 2023-11-10 14:48 | Neurology Consultation ---
Date of Consultation November 10, 2023 Assessment & Plan (1) Syncope: 57 y/o male with history of prediabetes, hyperlipidemia,and vitamin D deficiency that presents following a suspected syncopal episode. Given overall clinical history, seizure is less likely, but due to concern for transient altered mental status following the event, agree with EEG. Discussed recommendation of MRI brain w/wo with the patient but as there is no open MRI available at this facility, he would prefer to defer to the outpatient setting. Given loss of awareness, no driving. Syncope work-up per primary. 1. EEG pending 2. Pt has requested to defer MRI brain w/wo to outpatient setting for open MRI 3. Syncope work-up per primary 4. Orthostatic vitals pending 5. Cardiology to consider LINQ Telehealth Consultation Telehealth Information Telehealth Information: I performed this visit using a real-time telehealth connection between my location and the patients location ([facility]). After connecting through interactive tele-video, patient was identified by name and date of and/or wristband check.Patient (or authorized healthcare advertising sales representative) was informed that this was a telemedicine visit and it was being conducted confidentially over secure lines. My office door was closed and no one else was present in the room with me.Patient (or authorized healthcare advertising sales representative) provided consent to proceed with the visit, expressed an understanding of privacy and security of the telemedicine visit, and gave permission to have a hospital advertising sales representative in the room in order to assist with the visit and to conduct portions of the visit, as needed. I informed the patient (or authorized healthcare advertising sales representative) that I reviewed their record and presented the opportunity for them to ask any questions regarding the visit today. The patient agreed to participate. History of Present Illness Reason for Consultation: syncope vs seizure Requesting Physician: Dr. Darien Gomez Attending Physician: Latisha Palacios MD History of Present Illness 57 y/o male with history of hyperlipidemia, prediabetes, and vitamin D deficiency that presented to the ED following an episode of loss of consciousness. The patient states that on last evening, he was in bed when he saw his daughter walking to her room. He got up to speak to her and felt lightheaded at that time. The next thing he knew he was on the floor with his family surrounding him. His son had observed him stumbling and caught him and lowered him to the ground. He believes that he lost consciousness very briefly. After coming to, he noted that he had generalized weakness. EMS were contacted. He wanted to stand up but he was not able to initially because of this weakness. He states that his generalized weakness lasted about 10 minutes. He states that he was able to understand everything being said and going on at that time. However, there was reportedly concern for altered mental status with the pt being slow to answer questions initially. After arrival in the ED, he was noted to be pale and slightly diaphoretic. He denies any focal weakness, numbness/tingling, room spinning sensation, vision disturbance/loss, headache, or diaphoresis. He states that he has never had any similar episodes and he has no history of seizures. He denies any prior head trauma, recent illness, or change in PO intake. Allergies Allergy/AdvReac Type Severity Reaction Status Date / Time [id number] Allergy Unknown Unknown Uncoded 11/10/23 09:22 Home Medications Medication Instructions Recorded Confirmed Type atorvastatin 10 mg tablet 10 mg PO DAILY 11/10/23 11/10/23 History cholecalciferol (vitamin D3) 50 50 mcg PO DAILY 11/10/23 11/10/23 History mcg (2,000 unit) capsule (Vitamin D3) Patient History Social History Smoking Status: Never smoker Second Hand Exposure: No; Do You Dip or Chew Tobacco: No; Hx Alcohol Use: No Hx Substance Use: No Preferred Language: Vietnamese Communication Ability: Effective Watch Electrician Required: No Beliefs That Will Affect Care: None Current Living Situation: Family Other Information That Helps Us Care for You: No Feels Safe at Home: Yes Safety Concerns: Feels Safe At This Time Review of Systems Negative except as listed above Physical Exam AAO X 3 No aphasia or dysarthria VFF intact EOMI, no nystagmus Facial sensations intact No facial asymmetry Tongue protrudes midline Motor: Moves all four extremities antigravity, no drift No involuntary movements. Sensation: Intact to light touch throughout. No tactile or visual extinction Cerebellar: FTN and HTS intact Results & Data Vital Signs (Past 12 Hours) Vital Signs Temp Pulse Pulse Resp BP BP Pulse Ox 11/10/23 14:09 36.3 C L 64 16 143/94 H 100 11/10/23 13:00 70 20 132/87 100 11/10/23 10:01 36.9 C 87 98 11/10/23 09:27 11/10/23 08:30 61 14 97 11/10/23 08:07 62 11/10/23 06:00 62 12 116/73 98 11/10/23 05:00 67 17 139/96 11/10/23 04:30 67 14 96 11/10/23 04:02 69 16 132/83 96 11/10/23 04:02 97 11/10/23 03:19 76 11/10/23 03:13 37 C 71 16 140/84 98 Pulse Ox O2 Del Method O2 Del Method 11/10/23 14:09 Room Air 11/10/23 13:00 Room Air 11/10/23 10:01 Room Air 11/10/23 09:27 98 Room Air 11/10/23 08:30 Room Air 11/10/23 08:07 11/10/23 06:00 Room Air 11/10/23 05:00 11/10/23 04:30 Room Air 11/10/23 04:02 Room Air 11/10/23 04:02 Room Air 11/10/23 03:19 11/10/23 03:13 Room Air Laboratory Results WBC 5.97, HGB 14.6, HCT 42.7, Plts 136, Na 137, Creatinine 1.09, Glucose 148, troponin 10.6, TSH 2.2826 Diagnostic Findings CTH:No acute abnormality.Paranasal sinus disease. TTE: EF 60-65%, normal left atrium size, trace mitral regurgitation, no inte ratrial shunt, no ASD Carotid Doppler: Unremarkable carotid ultrasound. No evidence for a hemodynamically significant stenosis.
--- NOTE | 2023-11-10 16:37 | Communication Note ---
Date of Service: November 10, 2023 The patient was seen and examined in the emergency room. The chart reviewed and relevant test reviewed too. Remains hemodynamically stable. Will have full progress note tomorrow if he is staying. Dr Edson Palacios
--- NOTE | 2023-11-10 18:35 | Communication Note ---
Date of Service: November 10, 2023 Neurology Update: 57 y/o male that presented with suspected vasovagal syncope. Low suspicion for seizure, based on clinical history. EEG pending. MRI brain w/wo planned for outpatient due to pt request for open MRI. Cardiology planning to consider LINQ. TTE with EF 60-65%, normal left atrium size, trace mitral regurgitation, no shunt,and no ASD. Syncope work-up per primary. With work-up incomplete, defer driving until deemed acceptable per primary or cardiology.
--- NOTE | 2023-11-10 18:45 | Electrocardiogram Report ---
Test Reason : Blood Pressure : / mmHG Vent. Rate : 074 BPM Atrial Rate : 074 BPM P-R Int : 176 ms QRS Dur : 082 ms QT Int : 344 ms P-R-T Axes : 068 003 061 degrees QTc Int : 381 ms Normal sinus rhythm Nonspecific T wave abnormality Abnormal ECG No previous ECGs available Confirmed by Berto Vargas ([id number]) on 11/10/2023 6:45:30 PM Referred By: REFERRED SELF Confirmed By:Berto Vargas
--- NOTE | 2023-11-10 20:17 | Electroencephalogram ---
EEG Procedure Note Date of Service November 10, 2023 Start / End Times Start Time: 13:19 End Time: 13:39 Referring Physician Darien Gomez History A 57 year old male with syncope and confusion. EEG performed for evaluation of epileptiform acitvity. Home Medication List Medication Instructions Recorded Confirmed Type atorvastatin 10 mg tablet 10 mg PO DAILY 11/10/23 11/10/23 History cholecalciferol (vitamin D3) 50 50 mcg PO DAILY 11/10/23 11/10/23 History mcg (2,000 unit) capsule (Vitamin D3) Inpatient Medication List Discontinued Medications Sodium Chloride (Nss) 1,000 mls @ 100 mls/hr IV .Q10H SRIKANTH Stop: 11/11/23 05:08 Last Infusion: 11/10/23 14:19 Dose: 0 mls/hr Documented By: Admin: 11/10/23 10:55 Dose: 100 mls/hr Documented By: RISA Description This is a 21 electrode EEG with a single channel dedicated to limited EKG. The electrodes were placed in accordance with the International 10-20 system. REPORT: REPORT: At the onset of the EEG, the patient is awake. The background activity consist of 10-11 Hz, persistent, posteriorly dominant, moderate amplitude, symmetric and rhythmic activity that is reactive to eye opening. Anteriorly, it consist of a mixture of low voltage indeterminate activity and 15-25 Hz, persistent, low amplitude, symmetric and rhythmic activity. Stepwise intermittent photic stimulation (1-21 Hz) and hyperventilation (3 minutes, good effort) do not induce any abnormalities. Drowsiness is characterized by low amplitude mixed frequency activity, roving eye movements, and decreased eye blinking and muscle artifact. Interpretation IMPRESSION: This is a normal awake and drowsy routine EEG. There is no evidence of focal slowing or epileptiform activity.
== END 2023-11-10 18:25 | disposition home or self-care (01) | DRG 312 ==
LOC: ED 02:54 → EDINP 06:59 → INTOOBSV 06:59 → 2E 13:46